=== PATIENT | male | born 1990 | race Hispanic/Latino ===

== ENCOUNTER 2016-09-18 16:02 | Emergency (ER) | payer OTHER ==
[~2016-09-18] VITALS: Ht 180.3 cm; Wt 117.9 kg
[~2016-09-18 16:02] MED LIST: ASPIR 8181 MG ORAL; ATIVAN1 MG ORAL; ATIVAN2 MG ORAL; NKM; [UNRECOGNIZED DRUG - OTHER] PO
[2016-09-18 16:10] VITALS: BP 134/82
--- NOTE | 2016-09-18 16:26 | Emergency Room Report ---
History of Present Illness General Chief Complaint: Abdominal Pain Source: Patient Present Illness HPI 26 YO Male presents to the ED stating he had an episode of 8/10 in severity burning intermittent epigastric and RUQ abdominal pain, that lasts several minutes, and is now resolved. pt. denies nausea or vomiting. denies fevers, chills, constipation or diarrhea. pt. reports hx of similar episodes in the past and states he has a hx of appendicitis. pt. denies bloody or dark tarry stools. pt. reports gallbladder has been surgically removed. denies recent travel or ill contacts. pt. states eating food has not notable bearing on his symptoms.Denies CP, Palpitations, LOC, AMS, dizziness, Changes in Vision, Sensation, paresthesias, or a sudden severe headache. Allergies: Coded Allergies: No Known Allergies (Unverified , 09/20/12) Patient History Past Medical History: see triage record Past Surgical History: none Pertinent Family History: none Immunizations: UTD Reviewed Nursing Documentation: PMH: Agreed, PSxH: Agreed Nursing Documentation-PMH Past Medical History: No History, Except For Hx Hypertension: Yes Hx Gastrointestinal Problems: Yes - Pancreatitis Review of Systems All Other Systems: negative except mentioned in HPI Physical Exam Vital Signs Date Time Temp Pulse Resp B/P Pulse Ox O2 Delivery O2 Flow Rate FiO2 09/18/16 15:58 97.7 92 16 110/76 98 Sp02 EP Interpretation: reviewed, normal General Appearance: no apparent distress, alert, GCS 15, non-toxic Head: normocephalic, atraumatic Eyes: bilateral eye PERRL, bilateral eye normal inspection ENT: hearing grossly normal, normal pharynx, no angioedema, normal voice Neck: full range of motion, supple/symm/no masses Respiratory: lungs clear, normal breath sounds, speaking full sentences Cardiovascular #1: regular rate, rhythm, no edema Gastrointestinal: normal bowel sounds, non tender, soft, no guarding, no rebound, other - Negative [place] signs, Negative MacBurney's sign, Negative Rosvigns Sign, Negative Psoas, No Peritoneal signs. Rectal: deferred Genitourinary: normal inspection, no CVA tenderness Musculoskeletal: back normal, gait/station normal, normal range of motion, non- tender, no calf tenderness Neurologic: alert, oriented x3, responsive, motor strength/tone normal, sensory intact, speech normal Psychiatric: judgement/insight normal, memory normal, mood/affect normal Skin: normal color, no rash, warm/dry, well hydrated Medical Decision Making PA Attestation Dr. Villafana is my supervising Physician whom patient management has been discussed with. Diagnostic Impression: Primary Impression: Abdominal pain Qualified Codes: R10.13 - Epigastric pain ER Course 26 YO Male presents to the ED stating he had an episode of 8/10 in severity burning intermittent epigastric and RUQ abdominal pain, that lasts several minutes, and is now resolved. pt. denies nausea or vomiting. denies fevers, chills, constipation or diarrhea. pt. reports hx of similar episodes in the past and states he has a hx of appendicitis. pt. denies bloody or dark tarry stools. pt. reports gallbladder has been surgically removed. denies recent travel or ill contacts. pt. states eating food has not notable bearing on his symptoms.Denies CP, Palpitations, LOC, AMS, dizziness, Changes in Vision, Sensation, paresthesias, or a sudden severe headache. Ddx considered but are not limited to Diverticulitis, acute appy, diarrhea,UC, PUD, GE, pancreatitis, gallstone Vital signs: are WNL, pt. is afebrile H&PE are most consistent with gastritis or possible peptic ulcer. ORDERS: -CBC elevated wbc 12.7 - CMP & lipase : Unremarkable/WNL UA: unremarkable ED INTERVENTIONS: - 1000NS, - Zantac 150mg. DISCHARGE: At this time pt. is stable for d/c to home. Will provide printed patient care instructions, and any necessary prescriptions. Care plan and follow up instructions have been discussed with the patient prior to discharge. Labs Test 09/18/16 16:40 09/18/16 16:58 Urine Color Yellow Urine Appearance Clear Urine pH 6.5 (4.5-8.0) Urine Specific [place] 1.015 (1.005-1.035) Urine Protein 1+ (NEGATIVE) Urine Glucose (UA) Negative (NEGATIVE) Urine Ketones Negative (NEGATIVE) Urine Occult Blood Negative (NEGATIVE) Urine Nitrite Negative (NEGATIVE) Urine Bilirubin Negative (NEGATIVE) Urine Urobilinogen 4 MG/DL (0.0-1.0) Urine Leukocyte Esterase Negative (NEGATIVE) Urine RBC 0 /HPF (0 - 0) Urine WBC 0-2 /HPF (0 - 0) Urine Squamous Epithelial Cells None /LPF (NONE/OCC) Urine Bacteria None /HPF (NONE) White Blood Count 12.7 K/UL (4.8-10.8) Red Blood Count 4.73 M/UL (4.70-6.10) Hemoglobin 14.5 G/DL (14.2-18.0) Hematocrit 41.7 % (42.0-52.0) Mean Corpuscular Volume 88 FL (80-99) Mean Corpuscular Hemoglobin 30.7 PG (27.0-31.0) Mean Corpuscular Hemoglobin Concent 34.9 G/DL (32.0-36.0) Red Cell Distribution Width 11.2 % (11.6-14.8) Platelet Count 184 K/UL (150-450) Mean Platelet Volume 8.0 FL (6.5-10.1) Neutrophils (%) (Auto) 81.1 % (45.0-75.0) Lymphocytes (%) (Auto) 11.5 % (20.0-45.0) Monocytes (%) (Auto) 6.6 % (1.0-10.0) Eosinophils (%) (Auto) 0.4 % (0.0-3.0) Basophils (%) (Auto) 0.4 % (0.0-2.0) Sodium Level 140 mEQ/L (135-145) Potassium Level 4.7 mEQ/L (3.4-4.9) Chloride Level 100 mEQ/L (98-107) Carbon Dioxide Level 28 mEQ/L (20-30) Anion Gap 12 (5-15) Blood Urea Nitrogen 13 mg/dL (7-23) Creatinine 0.9 mg/dL (0.7-1.2) Estimat Glomerular Filtration Rate > 60 mL/min (>60) Glucose Level 114 mg/dL (74-106) Calcium Level 9.7 mg/dL (8.6-10.2) Total Bilirubin 0.7 mg/dL (0.0-1.2) Aspartate Amino Transf (AST/SGOT) 25 U/L (5-40) Alanine Aminotransferase (ALT/SGPT) 29 U/L (3-41) Alkaline Phosphatase 37 U/L (40-129) Total Protein 7.5 g/dL (6.6-8.7) Albumin 4.6 g/dL (3.5-5.2) Globulin 2.9 g/dL Albumin/Globulin Ratio 1.5 (1.0-2.7) Amylase Level 28 U/L (10-110) Lipase 24 U/L (< 60) Last Vital Signs Date Time Temp Pulse Resp B/P Pulse Ox O2 Delivery O2 Flow Rate FiO2 09/18/16 15:58 97.7 92 16 110/76 98 Disposition: HOME, SELF-CARE Condition: Stable Scripts Ranitidine Hcl* (ZANTAC*) 150 Mg Tablet 150 MG ORAL TWICE A DAY for 14 Days, #28 TAB Prov: Kirsty Palafox 09/18/16 Patient Instructions: Abdominal Pain, Adult, Gastritis, Adult Additional Instructions: Take medications as directed. ! AVOID ALCOHOL, ASPIRIN, and NSAIDS Follow up with a Primary Care Provider in 3-5 days, even if your symptoms have resolved. --Please review list of primary care clinics, if you do not already have a primary care provider Return sooner to ED if new symptoms occur, or current symptoms become worse. - Please note that this Emergency Department Report was dictated using [employer] radiation physician technology software, occasionally this can lead to erroneous entry secondary to interpretation by the dictation equipment. Kirsty Palafox Sep 18, 2016 16:26
[2016-09-18 17:25] LABS: BASOPHILS % (AUTO) 0.4 % (0.0-2.0); EOSINOPHILS % (AUTO) 0.4 % (0.0-3.0); LYMPHOCYTES % (AUTO) 11.5 % (20.0-45.0); MEAN CORPUSCULAR HEMOGLOBIN 30.7 PG (27.0-31.0); MEAN CORPUSCULAR HGB CONC 34.9 G/DL (32.0-36.0); MEAN CORPUSCULAR VOLUME 88 FL (80-99); MONOCYTES % (AUTO) 6.6 % (1.0-10.0); NEUTROPHILS % (AUTO) 81.1 % (45.0-75.0); PLATELET COUNT 184 K/UL (150-450); RED BLOOD COUNT 4.73 M/UL (4.70-6.10); RED CELL DISTRIBUTION WIDTH 11.2 % (11.6-14.8); WHITE BLOOD COUNT 12.7 K/UL (4.8-10.8)
[2016-09-18 17:30] LABS: APPEARANCE,URINE CLEAR; KETONES,URINE NEGATIVE (NEGATIVE); LEUKOCYTE ESTERASE ,URINE NEGATIVE (NEGATIVE); NITRITE,URINE NEGATIVE (NEGATIVE); PH,URINE 6.5 (4.5-8.0); PROTEIN,URINE 1+ (NEGATIVE); UROBILINOGEN,URINE 4 MG/DL (0.0-1.0)
[2016-09-18 17:36] LABS: RBC,URINE 0 /HPF (0 - 0); WBC,URINE 0-2 /HPF (0 - 0)
[2016-09-18 17:37] LABS: ALANINE AMINOTRANSFERASE 29 U/L (3-41); ALBUMIN/GLOBULIN RATIO 1.5 (1.0-2.7); AMYLASE 28 U/L (10-110); ANION GAP 12 (5-15); ASPARTATE AMINO TRANSFERASE 25 U/L (5-40); CALCIUM 9.7 mg/dL (8.6-10.2); CARBON DIOXIDE 28 mEQ/L (20-30); CHLORIDE 100 mEQ/L (98-107); CREATININE 0.9 mg/dL (0.7-1.2); GLOMERULAR FILTRATION RATE > 60 mL/min (>60); HEMOLYSIS 7; LIPASE 24 U/L (< 60); POTASSIUM 4.7 mEQ/L (3.4-4.9); SODIUM 140 mEQ/L (135-145); TOTAL PROTEIN 7.5 g/dL (6.6-8.7)
[2016-09-18] MEDS ORDERED: LISINOPRIL10 MG ORAL (17:39)
[2016-09-18] MEDS ORDERED: ZANTAC150 MG ORAL (18:00)
[2016-09-18 18:07] VITALS: BP 114/57
[2016-09-18 18:41] VITALS: BP 116/51
== END 2016-09-18 18:43 | disposition home or self-care (01) ==
LOC: EDBD 16:02 → EMR 16:54
DX: R10.13 Epigastric pain (principal); I10 Essential (primary) hypertension; Z87.19 Personal history of other diseases of the digestive system
CPT/HCPCS: 36415; 80053; 81003; 82150; 83690; 85025; 96360

== ENCOUNTER 2019-07-03 18:46 | Inpatient (IN) | payer BC, OTHER ==
[~2019-07-03] VITALS: Ht 180.3 cm; Wt 122.6 kg
[~2019-07-03 18:46] MED LIST changes: +LISINOPRIL10 MG ORAL; +ZANTAC150 MG ORAL
--- NOTE | 2019-07-03 18:50 | NUR ---
ED Nurse Note: Pt ambulated to ED d/t abdominal pain, nausea and vomiting since 0900 today. Pt is AOx4, calm and cooperative. VSS, on RA, afebrile on triage. Placed on bed; will continue to monitor.
[2019-07-03] MEDS ORDERED: LISINOPRIL20 MG ORAL (18:53)
[2019-07-03 19:00] VITALS: BP 167/104
--- NOTE | 2019-07-03 19:14 | NUR ---
HAND-OFF: Report given to Steven Wong RN.
--- NOTE | 2019-07-03 19:15 | NUR ---
ED Nurse Note: received report from Jenelle VARGAS. Will resume care of patient
--- NOTE | 2019-07-03 19:28 | Emergency Room Report ---
History of Present Illness General Chief Complaint: Abdominal Pain Source: Patient Present Illness HPI Patient is a 28-year-old male who presents after increased epigastric pain beginning yesterday. He had associated nausea and vomiting. Reports having prior history of gallstones as well as pancreatitis. Previous laparoscopic cholecystectomy. States he had prior pancreatitis approximately 4 years ago. Denies alcohol use regularly however he states he had one alcohol beverage a few days ago.Patient denies any hematemesis or bloody stools. Denies any fever or recent illness. Denies any sick contacts. Allergies: Coded Allergies: No Known Allergies (Unverified , 09/20/12) COVID-19 Screening Contact w/high risk pt: No Recent Travel to affected area: No Experienced COVID-19 symptoms?: No Patient History Past Medical History: see triage record Reviewed Nursing Documentation: PMH: Agreed; PSxH: Agreed Nursing Documentation-PMH Past Medical History: No History, Except For Hx Hypertension: Yes Hx Gastrointestinal Problems: Yes - Pancreatitis Review of Systems All Other Systems: negative except mentioned in HPI Physical Exam Vital Signs Date Time Temp Pulse Resp B/P (MAP) Pulse Ox O2 Delivery O2 Flow Rate FiO2 07/03/19 18:49 98.1 91 22 167/104 (125) 98 Room Air Sp02 EP Interpretation: reviewed, normal General Appearance: normal inspection, well appearing, no apparent distress, alert, GCS 15, obese Head: atraumatic ENT: normal ENT inspection, hearing grossly normal, normal voice Neck: normal inspection, full range of motion, supple, no bony tend Respiratory: normal inspection, lungs clear, normal breath sounds, no respiratory distress, no retraction, no wheezing Cardiovascular #1: regular rate, rhythm, no edema Gastrointestinal: normal inspection, normal bowel sounds, soft, no guarding, no hernia, tenderness - Epigastric Genitourinary: no CVA tenderness Musculoskeletal: normal inspection, back normal, normal range of motion Neurologic: alert, responsive, speech normal, normal inspection Psychiatric: normal inspection, judgement/insight normal, mood/affect normal Medical Decision Making Diagnostic Impression: Primary Impression: Pancreatitis Qualified Codes: K85.80 - Other acute pancreatitis without necrosis or infection ER Course Patient presented for abdominal pain. Differential diagnosis include was not limited to pancreatitis, bowel obstruction, cholecystitis among others. Because of complexity of patient's medical condition imaging studies and laboratory tests were ordered. Laboratory testing was notable for markedly elevated lipase consistent with pancreatitis. Patient was given IV fluids as well as pain medications. CT imaging showed some ascites as well as marketed inflammatory changes near the pancreas. See radiology report for full details. Patient be admitted to the hospital for further evaluation and treatment of pancreatitis. Dr. Jackson was contacted for inpatient management due to panel physician. Last Vital Signs Date Time Temp Pulse Resp B/P (MAP) Pulse Ox O2 Delivery O2 Flow Rate FiO2 07/03/19 19:00 91 22 Room Air 07/03/19 19:00 98.1 167/104 98 Status: unchanged Disposition: ADMITTED INPATIENT Condition: Serious Referrals: NOT CHOSEN IPA/,REFERRING (PCP) Brayden Moran MD July 03, 2019 19:28
[2019-07-03] MEDS ORDERED: Morphine Sulfate 4mg/ml Inj (IV USE ONLY) IVP ONE ×3 (19:30→22:15)
--- NOTE | 2019-07-03 19:45 | NUR ---
ED Nurse Note: BLOOD AND URINE COLLECTED AND SENT TO LAB
[2019-07-03 20:01] LABS: BASOPHILS % (AUTO) 0.4 % (0.0-2.0); EOSINOPHILS % (AUTO) 0.4 % (0.0-3.0); HEMATOCRIT 44.1 % (42.0-52.0); HEMOGLOBIN 14.8 G/DL (14.2-18.0); LYMPHOCYTES % (AUTO) 16.3 % (20.0-45.0); MEAN CORPUSCULAR VOLUME 86 FL (80-99); MONOCYTES % (AUTO) 7.2 % (1.0-10.0); NEUTROPHILS % (AUTO) 75.6 % (45.0-75.0); PLATELET COUNT 211 K/UL (150-450); RED BLOOD COUNT 5.12 M/UL (4.70-6.10); RED CELL DISTRIBUTION WIDTH 12.2 % (11.6-14.8); WHITE BLOOD COUNT 11.7 K/UL (4.8-10.8)
[2019-07-03 20:06] LABS: ANION GAP 13 mmol/L (5-15); BLOOD UREA NITROGEN 12 mg/dL (7-18); CALCIUM 9.3 MG/DL (8.5-10.1); CARBON DIOXIDE 26 MMOL/L (21-32); CHLORIDE 103 MMOL/L (98-107); POTASSIUM 3.9 MMOL/L (3.5-5.1); SODIUM 142 MMOL/L (136-145)
[2019-07-03 20:07] LABS: INR 0.9 (0.9-1.1)
[2019-07-03 20:10] LABS: ALANINE AMINOTRANSFERASE 33 U/L (12-78); ALBUMIN 4.1 G/DL (3.4-5.0); ALBUMIN/GLOBULIN RATIO 1.2 (1.0-2.7); ALKALINE PHOSPHATASE 31 U/L (46-116); ASPARTATE AMINO TRANSFERASE 14 U/L (15-37); BILIRUBIN,TOTAL 0.6 MG/DL (0.2-1.0)
[2019-07-03] MEDS ORDERED: Omnipaque-300 100ml vial INJ PRN (20:30)
--- NOTE | 2019-07-03 20:45 | NUR ---
ED Nurse Note: PT CONSENT FORM SIGNED BY PT FOR CT ANGIO.
--- NOTE | 2019-07-03 20:50 | NUR ---
ED Nurse Note: PT WENT FOR CT
[2019-07-03 20:53] LABS: APPEARANCE,URINE CLEAR; BILIRUBIN, URINE NEGATIVE (NEGATIVE); COLOR,URINE YELLOW; GLUCOSE, URINE (UA) NEGATIVE (NEGATIVE); KETONES,URINE NEGATIVE (NEGATIVE); LEUKOCYTE ESTERASE ,URINE NEGATIVE (NEGATIVE); NITRITE,URINE NEGATIVE (NEGATIVE); PH,URINE 5 (4.5-8.0); PROTEIN,URINE NEGATIVE (NEGATIVE); UROBILINOGEN,URINE 1 MG/DL (0.0-1.0)
--- NOTE | 2019-07-03 21:05 | NUR ---
ED Nurse Note: PT BACK FROM CT
--- NOTE | 2019-07-03 21:50 | Diagnostic Imaging Report ---
EXAM: CT Abdomen and Pelvis With Intravenous Contrast CLINICAL HISTORY: ABD PAIN TECHNIQUE: Axial computed tomography images of the abdomen and pelvis with intravenous contrast. CTDI is 18.6 mGy and DLP is 1048 mGy-cm. One or more of the following dose reduction techniques were used: automated exposure control, adjustment of the mA and/or kV according to patient size, use of iterative reconstruction technique. COMPARISON: No relevant prior studies available. FINDINGS: Lung bases: Unremarkable. ABDOMEN: Liver: Mild fatty liver. Gallbladder and bile ducts: Cholecystectomy. Pancreas: Pancreatitis with pancreatic ascites. No pseudocyst. Spleen: Unremarkable. Adrenals: Unremarkable. Kidneys and ureters: Unremarkable. No hydronephrosis. Stomach and bowel: Reactive changes in the stomach and duodenum secondary to the pancreatitis PELVIS: Appendix: No findings to suggest acute appendicitis. Bladder: Unremarkable. Reproductive: Unremarkable. ABDOMEN and PELVIS: Intraperitoneal space: See above. Bones/joints: No acute fracture. Soft tissues: Unremarkable. Vasculature: Unremarkable. No abdominal aortic aneurysm. Lymph nodes: No enlarged lymph nodes. IMPRESSION: Pancreatitis with pancreatic ascites. No pseudocyst.
--- NOTE | 2019-07-03 22:27 | NUR ---
NURSE NOTES: Receive a report from TIFFANY Harris RN.
[2019-07-03 22:32] VITALS: BP 109/72
--- NOTE | 2019-07-03 22:33 | NUR ---
ED Nurse Note: GAVE REPORT TO MEET RN
--- NOTE | 2019-07-03 22:48 | NUR ---
TRANSFER TO FLOOR: Patient transferred to [facility] via [facility] in stable condition as ordered, per dr. Jackson. Report given to Sam VARGAS. Belongings sent with patient
--- NOTE | 2019-07-03 22:50 | NUR ---
NURSE NOTES: Pt admitted from ED via gurney. Alert and awake, Bulgarian speaking. No acute distress noted but still pain is 9/10 after pain medication @ ED. On NPO. B/B continent. No skin issues. Done checking belonging list. Pt will keep laurent in hands. Given unit orientation. Call light within reach. Will continue to monitor.
[2019-07-03 23:00] VITALS: BP 145/55
--- NOTE | 2019-07-03 23:05 | NUR ---
NURSE NOTES: Receive a call from Dr. Moseley and got admission orders. Notify Pt's pain level. Will have consult for GI and pain. Read back orders. Order noted and carried out. Explain to pt for pain medication schedule. Will continue to monitor.
--- NOTE | 2019-07-03 23:45 | NUR ---
NURSE NOTES: Given Zofran 4mg IVS for nausea. Explain for pain medication schedule d/t medication S/E and disease process. Pt understood. Apply ice bag for pain and distraction. Will continue to monitor.
[2019-07-04] MEDS: Morphine Sulfate 4mg/ml Inj (IV USE ONLY) IVP PRN ×5 (02:31→22:51)
[2019-07-04 04:30] VITALS: BP 147/88
--- NOTE | 2019-07-04 07:30 | NUR ---
HAND-OFF: Report given to MEET VARGAS. Addendum: 07/04/19 at 2026 by Donny Joseph RN RN Krzysztof cevallos , 1929
--- NOTE | 2019-07-04 07:30 | NUR ---
HAND-OFF: Report given to ALICIA Hines. Round is done. Pt relieved after pain medication. On NPO.
--- NOTE | 2019-07-04 07:30 | NUR ---
NURSE NOTES: Handoff received from O RN. Patient is awake and alert, no complaints of pain at this time. Breathing is unlabored on room air, IV is patent and asymptomatic. Bed is low and locked, side rails up x2, call light within reach.
[2019-07-04 08:00] VITALS: BP 145/85
[2019-07-04] MEDS ORDERED: 1/2 NS 1000ml IV ONE (08:36)
[2019-07-04 08:52] LABS: HEMATOCRIT 41.1 % (42.0-52.0); HEMOGLOBIN 14.8 G/DL (14.2-18.0); MEAN CORPUSCULAR VOLUME 82 FL (80-99); PLATELET COUNT 204 K/UL (150-450); RED BLOOD COUNT 4.99 M/UL (4.70-6.10); RED CELL DISTRIBUTION WIDTH 10.9 % (11.6-14.8); WHITE BLOOD COUNT 10.8 K/UL (4.8-10.8)
[2019-07-04 09:23] LABS: ALANINE AMINOTRANSFERASE 32 U/L (12-78); ALBUMIN 3.7 G/DL (3.4-5.0); ALBUMIN/GLOBULIN RATIO 1.1 (1.0-2.7); ALKALINE PHOSPHATASE 28 U/L (46-116); ANION GAP 10 mmol/L (5-15); ASPARTATE AMINO TRANSFERASE 16 U/L (15-37); BILIRUBIN,TOTAL 0.9 MG/DL (0.2-1.0); BLOOD UREA NITROGEN 9 mg/dL (7-18); CALCIUM 8.6 MG/DL (8.5-10.1); CARBON DIOXIDE 25 MMOL/L (21-32); CHLORIDE 104 MMOL/L (98-107); CREATININE 0.8 MG/DL (0.55-1.30); POTASSIUM 3.9 MMOL/L (3.5-5.1); SODIUM 139 MMOL/L (136-145)
--- NOTE | 2019-07-04 10:05 | General Progress Note ---
Assessment/Plan Assessment/Plan: pancreatitis ? cause post kaia min ETOH increase IVF to 150 repeat labs lipid panel pain Control npo will fu Subjective ROS Limited/Unobtainable: Yes Allergies: Coded Allergies: No Known Allergies (Unverified , 09/20/12) Objective Last 24 Hour Vital Signs Date Time Temp Pulse Resp B/P (MAP) Pulse Ox O2 Delivery O2 Flow Rate FiO2 07/04/19 08:00 98.2 72 18 145/85 (105) 95 07/04/19 04:30 97.3 73 20 147/88 (107) 97 07/04/19 00:00 Room Air 07/03/19 23:30 Room Air 07/03/19 23:00 99.9 87 20 145/55 (85) 97 07/03/19 22:48 98.3 81 20 109/72 98 Room Air 07/03/19 22:44 98.3 07/03/19 22:32 98.3 81 20 109/72 98 Room Air 07/03/19 21:12 98.1 07/03/19 20:18 98.1 07/03/19 19:00 91 22 Room Air 07/03/19 19:00 98.1 22 167/104 98 Room Air 07/03/19 18:49 98.1 91 22 167/104 (125) 98 Room Air Intake and Output 07/03/19 07/04/19 19:00 07:00 Intake Total 405 ml Balance 405 ml Intake IV Total 405 ml # Voids 2 Laboratory Tests 07/03/19 19:40: White Blood Count 11.7H, Red Blood Count 5.12, Hemoglobin 14.8, Hematocrit 44.1 , Mean Corpuscular Volume 86, Mean Corpuscular Hemoglobin 28.9, Mean Corpuscular Hemoglobin Concent 33.6, Red Cell Distribution Width 12.2, Platelet Count 211, Mean Platelet Volume 9.2, Neutrophils (%) (Auto) 75.6H, Lymphocytes ( %) (Auto) 16.3L, Monocytes (%) (Auto) 7.2, Eosinophils (%) (Auto) 0.4, Basophils (%) (Auto) 0.4, Prothrombin Time 10.0, Prothromb Time International Ratio 0.9, Activated Partial Thromboplast Time 25, Sodium Level 142, Potassium Level 3.9, Chloride Level 103, Carbon Dioxide Level 26, Anion Gap 13, Blood Urea Nitrogen 12, Creatinine 1.0, Estimat Glomerular Filtration Rate > 60, Glucose Level 126H, Calcium Level 9.3, Total Bilirubin 0.6, Aspartate Amino Transf (AST/SGOT) 14L, Alanine Aminotransferase (ALT/SGPT) 33, Alkaline Phosphatase 31L, Total Protein 7.6, Albumin 4.1, Globulin 3.5, Albumin/Globulin Ratio 1.2, Lipase > 2000H 07/03/19 20:10: Urine Color Yellow, Urine Appearance Clear, Urine pH 5, Urine Specific [place] 1.020, Urine Protein Negative, Urine Glucose (UA) Negative, Urine Ketones Negative, Urine Blood Negative, Urine Nitrite Negative, Urine Bilirubin Negative , Urine Urobilinogen 1H, Urine Leukocyte Esterase Negative 07/04/19 08:30: White Blood Count 10.8, Red Blood Count 4.99, Hemoglobin 14.8, Hematocrit 41.1L , Mean Corpuscular Volume 82, Mean Corpuscular Hemoglobin 29.6, Mean Corpuscular Hemoglobin Concent 36.0, Red Cell Distribution Width 10.9L, Platelet Count 204, Mean Platelet Volume 7.0, Neutrophils (%) (Auto) , Lymphocytes (%) (Auto) , Monocytes (%) (Auto) , Eosinophils (%) (Auto) , Basophils (%) (Auto) , Sodium Level 139, Potassium Level 3.9, Chloride Level 104 , Carbon Dioxide Level 25, Anion Gap 10, Blood Urea Nitrogen 9, Creatinine 0.8, Estimat Glomerular Filtration Rate > 60, Glucose Level 110H, Calcium Level 8.6, Total Bilirubin 0.9, Aspartate Amino Transf (AST/SGOT) 16, Alanine Aminotransferase (ALT/SGPT) 32, Alkaline Phosphatase 28L, Total Protein 7.2, Albumin 3.7, Globulin 3.5, Albumin/Globulin Ratio 1.1, Lipase > 2000H, Neutrophils % (Manual) [Pending], Lymphocytes % (Manual) [Pending], Platelet Estimate [Pending], Platelet Morphology [Pending] Height (Feet): 5 Height (Inches): 11.00 Weight (Pounds): 270 General Appearance: no apparent distress EENT: PERRL/EOMI Neck: supple Cardiovascular: normal rate Respiratory/Chest: decreased breath sounds Abdomen: normal bowel sounds, non tender, soft Extremities: non-tender Vosoghi,Nixon MD July 04, 2019 10:05
--- NOTE | 2019-07-04 10:18 | NUR ---
CASE MANAGEMENT: INITIAL REVIEW 28YR OLD MALE FROM HOME CC: ABDOMINAL PAIN; NAUSEA AND VOMITING PMH: GALLSTONES ; PANCREATITIS ; LAP [place] SI:PANCREATITIS 98.0 91 22 167/104 98% ON RA WBC 11.7 LIPASE >2000 ALKP 31 IS:IVF NS BOLUS X2 IV ZOFRAN X1 IV PEPCID X1 IV MORPHINE SULFATE X3 CT ABDOMINAL AND PELVIS W/ IV CONTRAST -Pancreatitis with pancreatic ascites. No pseudocyst. \: 3E [facility] SURG UNIT DCP: HOME WHEN STABLE PLAN: NPO CONTROL PAIN REPEAT LABS INTERQUAL MET 07/03/19 CASE MANAGEMENT: REVIEW SI:PANCREATITIS 98.2 72 18 145/85 95% ON RA LIPASE >2000 ALKP 28 IS:IV ZOFRAN Q6HR/PRN IV MORPHINE SULFATE Q4HR/PRN \: 3E MED SURG UNIT DCP: HOME WHEN STABLE PLAN: NPO CONTROL PAIN REPEAT LABS AM LABS
--- NOTE | 2019-07-04 10:32 | NUR ---
*-* INSURANCE *-* ALL AVAILABLE CLINICALS HAVE BEEN FAXED TO: [facility] REF#[id number] #[phone] FAX#[phone] REVIEWS/CLINICALS Addendum: 07/04/19 at 1109 by NAYAN GLEASON CM [facility] Ref#[id number] Ph#[phone] fax#[phone]
[2019-07-04 12:00] VITALS: BP 144/83
--- NOTE | 2019-07-04 15:41 | Consultation ---
History of Present Illness General Date patient seen: July 04, 2019 Reason for Hospitalization: Abdominal Pain Present Illness HPI This is a very pleasant overweight 28-year-old male who presents after increased epigastric pain beginning yesterday. He had associated nausea and vomiting. Reports having prior history of gallstones as well as pancreatitis. Previous laparoscopic cholecystectomy 6 years ago for believed episodes of gallstone pancreatitis. States he had prior pancreatitis approximately 3-4 years ago. Denies alcohol use regularly however he states he had one alcohol beverage a few days ago but does not drink often at all. Patient denies any hematemesis or bloody stools. Denies any fever or recent illness. Denies any sick contacts. lip >2k. abnormal lft. surgery called to evaluate and assist with care. patient seen, chart reviewed, patient examined. pain imroved with pain meds Allergies: Coded Allergies: No Known Allergies (Unverified , 09/20/12) COVID-19 Screening Contact w/high risk pt: No Recent Travel to affected area: No Experienced COVID-19 symptoms?: No Medication History Scheduled Aspirin* (Aspir 81*), 81 MG ORAL DAILY, (Reported) Lisinopril (Lisinopril*), 20 MG ORAL DAILY, (Reported) Lisinopril* (Lisinopril*), 10 MG ORAL DAILY, (Reported) Lorazepam* (Ativan*), 1 MG ORAL THREE TIMES A DAY Lorazepam* (Ativan*), 2 MG ORAL THREE TIMES A DAY Ranitidine Hcl* (Zantac*), 150 MG ORAL TWICE A DAY [Trionipril], 20 MG PO DAILY, (Reported) Patient History History Provided By: Patient, Medical Record, PMD Healthcare decision maker Resuscitation status Advanced Directive on File Past Medical/Surgical History Past Medical/Surgical History: (1) anxiety (2) Palpitations (3) Palpitations (4) Pancreatitis Review of Systems Review of Symptoms General ROS: no weight loss or fever Psychological ROS: no depression or mood changes, no memory loss Ophthalmic ROS: no visual changes or eye irritation ENT ROS: no nasal congestion, hearing loss, dizziness Allergy and Immunology ROS: no allergic symptoms or urticaria Hematological and Lymphatic ROS: no swollen glands, unusual bleeding or bruising Endocrine ROS: no polyuria, polydipsia, weight changes, temperature intolerance Respiratory ROS: no cough, shortness of breath, or wheezing Cardiovascular ROS: no chest pain or dyspnea on exertion Gastrointestinal ROS: abdominal pain, bright red blood in stool. Musculoskeletal ROS: no myalgias or arthralgias Neurological ROS: no TIA or stroke symptoms Dermatological ROS: no new or changing skin lesions, rashes or pruritis Physical Exam Physical Exam General appearance: alert, cooperative, no distress, appears stated age Head: Normocephalic, without obvious abnormality, atraumatic Eyes: conjunctivae/corneas clear. PERRL, EOM's intact. Fundi benign Throat: Lips, mucosa, and tongue normal. Teeth and gums normal Neck: supple, symmetrical, trachea midline, no adenopathy, thyroid: not enlarged, symmetric, no tenderness/mass/nodules, no carotid bruit and no JVD Lungs: clear to auscultation bilaterally Heart: regular rate and rhythm, S1, S2 normal, no murmur, click, rub or gallop Abdomen: soft, non-tender. Bowel sounds normal. No masses, no organomegaly Extremities: extremities normal, atraumatic, no cyanosis or edema Pulses: 2+ and symmetric Skin: Skin color, texture, turgor normal. No rashes or lesions Neurologic: Grossly normal Last 24 Hour Vital Signs Date Time Temp Pulse Resp B/P (MAP) Pulse Ox O2 Delivery O2 Flow Rate FiO2 07/04/19 12:00 97.6 78 18 144/83 (103) 96 78 07/04/19 09:00 Room Air 07/04/19 08:00 98.2 72 18 145/85 (105) 95 07/04/19 04:30 97.3 73 20 147/88 (107) 97 07/04/19 00:00 Room Air 07/03/19 23:30 Room Air 07/03/19 23:00 99.9 87 20 145/55 (85) 97 07/03/19 22:48 98.3 81 20 109/72 98 Room Air 07/03/19 22:44 98.3 07/03/19 22:32 98.3 81 20 109/72 98 Room Air 07/03/19 21:12 98.1 07/03/19 20:18 98.1 07/03/19 19:00 91 22 Room Air 07/03/19 19:00 98.1 22 167/104 98 Room Air 07/03/19 18:49 98.1 91 22 167/104 (125) 98 Room Air Intake and Output 07/03/19 07/04/19 19:00 07:00 Intake Total 405 ml Balance 405 ml Intake IV Total 405 ml # Voids 2 Laboratory Tests Test 07/03/19 19:40 07/03/19 20:10 07/04/19 08:30 White Blood Count 11.7 K/UL (4.8-10.8) H 10.8 K/UL (4.8-10.8) Red Blood Count 5.12 M/UL (4.70-6.10) 4.99 M/UL (4.70-6.10) Hemoglobin 14.8 G/DL (14.2-18.0) 14.8 G/DL (14.2-18.0) Hematocrit 44.1 % (42.0-52.0) 41.1 % (42.0-52.0) L Mean Corpuscular Volume 86 FL (80-99) 82 FL (80-99) Mean Corpuscular Hemoglobin 28.9 PG (27.0-31.0) 29.6 PG (27.0-31.0) Mean Corpuscular Hemoglobin Concent 33.6 G/DL (32.0-36.0) 36.0 G/DL (32.0-36.0) Red Cell Distribution Width 12.2 % (11.6-14.8) 10.9 % (11.6-14.8) L Platelet Count 211 K/UL (150-450) 204 K/UL (150-450) Mean Platelet Volume 9.2 FL (6.5-10.1) 7.0 FL (6.5-10.1) Neutrophils (%) (Auto) 75.6 % (45.0-75.0) H % (45.0-75.0) Lymphocytes (%) (Auto) 16.3 % (20.0-45.0) L % (20.0-45.0) Monocytes (%) (Auto) 7.2 % (1.0-10.0) % (1.0-10.0) Eosinophils (%) (Auto) 0.4 % (0.0-3.0) % (0.0-3.0) Basophils (%) (Auto) 0.4 % (0.0-2.0) % (0.0-2.0) Prothrombin Time 10.0 SEC (9.30-11.50) Prothromb Time International Ratio 0.9 (0.9-1.1) Activated Partial Thromboplast Time 25 SEC (23-33) Sodium Level 142 MMOL/L (136-145) 139 MMOL/L (136-145) Potassium Level 3.9 MMOL/L (3.5-5.1) 3.9 MMOL/L (3.5-5.1) Chloride Level 103 MMOL/L (98-107) 104 MMOL/L (98-107) Carbon Dioxide Level 26 MMOL/L (21-32) 25 MMOL/L (21-32) Anion Gap 13 mmol/L (5-15) 10 mmol/L (5-15) Blood Urea Nitrogen 12 mg/dL (7-18) 9 mg/dL (7-18) Creatinine 1.0 MG/DL (0.55-1.30) 0.8 MG/DL (0.55-1.30) Estimat Glomerular Filtration Rate > 60 mL/min (>60) > 60 mL/min (>60) Glucose Level 126 MG/DL (74-106) H 110 MG/DL (74-106) H Calcium Level 9.3 MG/DL (8.5-10.1) 8.6 MG/DL (8.5-10.1) Total Bilirubin 0.6 MG/DL (0.2-1.0) 0.9 MG/DL (0.2-1.0) Aspartate Amino Transf (AST/SGOT) 14 U/L (15-37) L 16 U/L (15-37) Alanine Aminotransferase (ALT/SGPT) 33 U/L (12-78) 32 U/L (12-78) Alkaline Phosphatase 31 U/L (46-116) L 28 U/L (46-116) L Total Protein 7.6 G/DL (6.4-8.2) 7.2 G/DL (6.4-8.2) Albumin 4.1 G/DL (3.4-5.0) 3.7 G/DL (3.4-5.0) Globulin 3.5 g/dL 3.5 g/dL Albumin/Globulin Ratio 1.2 (1.0-2.7) 1.1 (1.0-2.7) Lipase > 2000 U/L (73-393) H > 2000 U/L (73-393) H Urine Color Yellow Urine Appearance Clear Urine pH 5 (4.5-8.0) Urine Specific [place] 1.020 (1.005-1.035) Urine Protein Negative (NEGATIVE) Urine Glucose (UA) Negative (NEGATIVE) Urine Ketones Negative (NEGATIVE) Urine Blood Negative (NEGATIVE) Urine Nitrite Negative (NEGATIVE) Urine Bilirubin Negative (NEGATIVE) Urine Urobilinogen 1 MG/DL (0.0-1.0) H Urine Leukocyte Esterase Negative (NEGATIVE) Differential Total Cells Counted 100 Neutrophils % (Manual) 82 % (45-75) H Lymphocytes % (Manual) 11 % (20-45) L Monocytes % (Manual) 7 % (1-10) Eosinophils % (Manual) 0 % (0-3) Basophils % (Manual) 0 % (0-2) Band Neutrophils 0 % (0-8) Platelet Estimate Adequate Platelet Morphology Normal Red Blood Cell Morphology Normal Height (Feet): 5 Height (Inches): 11.00 Weight (Pounds): 270 Medications Current Medications Medications (Trade) Dose Ordered Sig/Shell Route PRN Reason Start Time Stop Time Status Last Admin Dose Admin Acetaminophen (Tylenol) 650 mg Q4H PRN ORAL Temp >100 07/03/19 23:15 08/02/19 23:14 Barium Sulfate (Readi-Cat 2) 450 ml NOW PRN ORAL Radiology Procedure 07/03/19 20:30 07/05/19 20:25 Iohexol (OMNIPAQUE-300 100ml) 100 ml NOW PRN INJ Radiology Procedure 07/03/19 20:30 07/05/19 20:25 Morphine Sulfate (Morphine Sulfate) 4 mg Q4H PRN IVP Severe Pain (Pain Scale 7-10) 07/03/19 23:15 07/10/19 23:14 07/04/19 10:49 Ondansetron HCl (Zofran) 4 mg Q6H PRN IVP Nausea & Vomiting 07/03/19 23:15 08/02/19 23:14 07/04/19 06:49 Sodium Chloride 1,000 ml @ 150 mls/hr Q6H40M IV 07/04/19 10:30 08/03/19 10:29 07/04/19 10:45 Assessment/Plan Problem List: (1) Pancreatitis Assessment & Plan: 28 year old male with acute pancreatitis not etoh induced. not gallstones as hx of lap kaia similar prior events etiology still under workup possible idiopathic / autoimmune pain still lip >2k on admission npo iv fluids iv abx will follow with clinical exam pain control thank you ABDOMEN: Liver: Mild fatty liver. Gallbladder and bile ducts: Cholecystectomy. Pancreas: Pancreatitis with pancreatic ascites. No pseudocyst. Spleen: Unremarkable. Adrenals: Unremarkable. Kidneys and ureters: Unremarkable. No hydronephrosis. Stomach and bowel: Reactive changes in the stomach and duodenum secondary to the pancreatitis PELVIS: Appendix: No findings to suggest acute appendicitis. Bladder: Unremarkable. Reproductive: Unremarkable. ABDOMEN and PELVIS: Intraperitoneal space: See above. Bones/joints: No acute fracture. Soft tissues: Unremarkable. Vasculature: Unremarkable. No abdominal aortic aneurysm. Lymph nodes: No enlarged lymph nodes. IMPRESSION: Pancreatitis with pancreatic ascites. No pseudocyst. ICD Codes: K85.90 - Acute pancreatitis without necrosis or infection, unspecified SNOMED: [id number] Qualifiers: Qualified Codes: K85.80 - Other acute pancreatitis without necrosis or infection Heber Rodriguez July 04, 2019 15:41
[2019-07-04 16:00] VITALS: BP 149/75
--- NOTE | 2019-07-04 17:48 | Consultation ---
History of Present Illness General Date patient seen: July 04, 2019 Present Illness Allergies: Coded Allergies: No Known Allergies (Unverified , 09/20/12) Medication History Scheduled Aspirin* (Aspir 81*), 81 MG ORAL DAILY, (Reported) Lisinopril (Lisinopril*), 20 MG ORAL DAILY, (Reported) Lisinopril* (Lisinopril*), 10 MG ORAL DAILY, (Reported) Lorazepam* (Ativan*), 1 MG ORAL THREE TIMES A DAY Lorazepam* (Ativan*), 2 MG ORAL THREE TIMES A DAY Ranitidine Hcl* (Zantac*), 150 MG ORAL TWICE A DAY [Trionipril], 20 MG PO DAILY, (Reported) Patient History Healthcare decision maker Resuscitation status Advanced Directive on File Physical Exam Last 24 Hour Vital Signs Date Time Temp Pulse Resp B/P (MAP) Pulse Ox O2 Delivery O2 Flow Rate FiO2 07/04/19 16:00 98.9 81 21 149/75 (99) 97 07/04/19 12:00 97.6 78 18 144/83 (103) 96 78 07/04/19 09:00 Room Air 07/04/19 08:00 98.2 72 18 145/85 (105) 95 07/04/19 04:30 97.3 73 20 147/88 (107) 97 07/04/19 00:00 Room Air 07/03/19 23:30 Room Air 07/03/19 23:00 99.9 87 20 145/55 (85) 97 07/03/19 22:48 98.3 81 20 109/72 98 Room Air 07/03/19 22:44 98.3 07/03/19 22:32 98.3 81 20 109/72 98 Room Air 07/03/19 21:12 98.1 07/03/19 20:18 98.1 07/03/19 19:00 91 22 Room Air 07/03/19 19:00 98.1 22 167/104 98 Room Air 07/03/19 18:49 98.1 91 22 167/104 (125) 98 Room Air Intake and Output 07/03/19 07/04/19 19:00 07:00 Intake Total 405 ml Balance 405 ml Intake IV Total 405 ml # Voids 2 Laboratory Tests Test 07/03/19 19:40 07/03/19 20:10 07/04/19 08:30 White Blood Count 11.7 K/UL (4.8-10.8) H 10.8 K/UL (4.8-10.8) Red Blood Count 5.12 M/UL (4.70-6.10) 4.99 M/UL (4.70-6.10) Hemoglobin 14.8 G/DL (14.2-18.0) 14.8 G/DL (14.2-18.0) Hematocrit 44.1 % (42.0-52.0) 41.1 % (42.0-52.0) L Mean Corpuscular Volume 86 FL (80-99) 82 FL (80-99) Mean Corpuscular Hemoglobin 28.9 PG (27.0-31.0) 29.6 PG (27.0-31.0) Mean Corpuscular Hemoglobin Concent 33.6 G/DL (32.0-36.0) 36.0 G/DL (32.0-36.0) Red Cell Distribution Width 12.2 % (11.6-14.8) 10.9 % (11.6-14.8) L Platelet Count 211 K/UL (150-450) 204 K/UL (150-450) Mean Platelet Volume 9.2 FL (6.5-10.1) 7.0 FL (6.5-10.1) Neutrophils (%) (Auto) 75.6 % (45.0-75.0) H % (45.0-75.0) Lymphocytes (%) (Auto) 16.3 % (20.0-45.0) L % (20.0-45.0) Monocytes (%) (Auto) 7.2 % (1.0-10.0) % (1.0-10.0) Eosinophils (%) (Auto) 0.4 % (0.0-3.0) % (0.0-3.0) Basophils (%) (Auto) 0.4 % (0.0-2.0) % (0.0-2.0) Prothrombin Time 10.0 SEC (9.30-11.50) Prothromb Time International Ratio 0.9 (0.9-1.1) Activated Partial Thromboplast Time 25 SEC (23-33) Sodium Level 142 MMOL/L (136-145) 139 MMOL/L (136-145) Potassium Level 3.9 MMOL/L (3.5-5.1) 3.9 MMOL/L (3.5-5.1) Chloride Level 103 MMOL/L (98-107) 104 MMOL/L (98-107) Carbon Dioxide Level 26 MMOL/L (21-32) 25 MMOL/L (21-32) Anion Gap 13 mmol/L (5-15) 10 mmol/L (5-15) Blood Urea Nitrogen 12 mg/dL (7-18) 9 mg/dL (7-18) Creatinine 1.0 MG/DL (0.55-1.30) 0.8 MG/DL (0.55-1.30) Estimat Glomerular Filtration Rate > 60 mL/min (>60) > 60 mL/min (>60) Glucose Level 126 MG/DL (74-106) H 110 MG/DL (74-106) H Calcium Level 9.3 MG/DL (8.5-10.1) 8.6 MG/DL (8.5-10.1) Total Bilirubin 0.6 MG/DL (0.2-1.0) 0.9 MG/DL (0.2-1.0) Aspartate Amino Transf (AST/SGOT) 14 U/L (15-37) L 16 U/L (15-37) Alanine Aminotransferase (ALT/SGPT) 33 U/L (12-78) 32 U/L (12-78) Alkaline Phosphatase 31 U/L (46-116) L 28 U/L (46-116) L Total Protein 7.6 G/DL (6.4-8.2) 7.2 G/DL (6.4-8.2) Albumin 4.1 G/DL (3.4-5.0) 3.7 G/DL (3.4-5.0) Globulin 3.5 g/dL 3.5 g/dL Albumin/Globulin Ratio 1.2 (1.0-2.7) 1.1 (1.0-2.7) Lipase > 2000 U/L (73-393) H > 2000 U/L (73-393) H Urine Color Yellow Urine Appearance Clear Urine pH 5 (4.5-8.0) Urine Specific [place] 1.020 (1.005-1.035) Urine Protein Negative (NEGATIVE) Urine Glucose (UA) Negative (NEGATIVE) Urine Ketones Negative (NEGATIVE) Urine Blood Negative (NEGATIVE) Urine Nitrite Negative (NEGATIVE) Urine Bilirubin Negative (NEGATIVE) Urine Urobilinogen 1 MG/DL (0.0-1.0) H Urine Leukocyte Esterase Negative (NEGATIVE) Differential Total Cells Counted 100 Neutrophils % (Manual) 82 % (45-75) H Lymphocytes % (Manual) 11 % (20-45) L Monocytes % (Manual) 7 % (1-10) Eosinophils % (Manual) 0 % (0-3) Basophils % (Manual) 0 % (0-2) Band Neutrophils 0 % (0-8) Platelet Estimate Adequate Platelet Morphology Normal Red Blood Cell Morphology Normal Height (Feet): 5 Height (Inches): 11.00 Weight (Pounds): 270 Medications Current Medications Medications (Trade) Dose Ordered Sig/Shell Route PRN Reason Start Time Stop Time Status Last Admin Dose Admin Acetaminophen (Tylenol) 650 mg Q4H PRN ORAL Temp >100 07/03/19 23:15 08/02/19 23:14 Barium Sulfate (Readi-Cat 2) 450 ml NOW PRN ORAL Radiology Procedure 07/03/19 20:30 07/05/19 20:25 Iohexol (OMNIPAQUE-300 100ml) 100 ml NOW PRN INJ Radiology Procedure 07/03/19 20:30 07/05/19 20:25 Morphine Sulfate (Morphine Sulfate) 4 mg Q4H PRN IVP Severe Pain (Pain Scale 7-10) 07/03/19 23:15 07/10/19 23:14 07/04/19 15:47 Ondansetron HCl (Zofran) 4 mg Q6H PRN IVP Nausea & Vomiting 07/03/19 23:15 08/02/19 23:14 07/04/19 06:49 Sodium Chloride 1,000 ml @ 150 mls/hr Q6H40M IV 07/04/19 10:30 08/03/19 10:29 07/04/19 17:38 Assessment/Plan Assessment/Plan: (1) Abdominal pain (2) Pancreatitis Seen dictated Danie Orosco July 04, 2019 17:48
--- NOTE | 2019-07-04 19:30 | NUR ---
NURSE NOTES: Receive a report from ALICIA Bynum. Round is done. Pt is awake and alert. No acute distress noted. Pain is tolerating at this time. On NPO with IV fluid hydration. Call light within reach. Will continue to monitor.
[2019-07-04 20:00] VITALS: BP 149/91
--- NOTE | 2019-07-04 21:00 | NUR ---
NURSE NOTES: Noted BT 100.3. No chilling/febrile sense noted. Given Tylenol 650mg po as ordered. Apply cooling measures. Will continue to monitor.
--- NOTE | 2019-07-04 22:44 | Consultation ---
DATE OF CONSULTATION: 07/04/2019 INFECTIOUS DISEASE CONSULTATION CONSULTING PHYSICIAN: Brett Drummond MD. PRIMARY ATTENDING: Tonya Jackson MD. REASON FOR CONSULT: Acute pancreatitis. HISTORY OF PRESENT ILLNESS: This is a 28-year-old male admitted yesterday complaining of nausea, vomiting, and epigastric pain. Patient has a history of pancreatitis [address] scan of the abdomen and pelvis showed acute pancreatitis. PAST MEDICAL HISTORY: Hypertension, history of pancreatitis, history of cholecystectomy. ALLERGIES: No known drug allergies. MEDICATIONS: Sodium chloride, morphine sulfate, Zofran, Tylenol. SOCIAL HISTORY: Single, but lives with somebody. Denies alcohol, drug abuse, or smoking. Works as a [employer]. REVIEW OF SYSTEMS: Nausea. Had 1 episode of vomiting yesterday. No fever. No chills. No cough. No chest pain. Has epigastric pain on and off. No ear problem. PHYSICAL EXAMINATION: VITAL SIGNS: Temperature 97.6, pulse 78, blood pressure 144/83. GENERAL APPEARANCE: No acute distress. Overweight, obese. HEAD AND NECK: [place] conjunctivae. HEART: Normal rate. LUNGS: Clear. ABDOMEN: Soft. EXTREMITIES: No edema. NEUROLOGIC: He is awake, alert, oriented x3. LABORATORY AND DIAGNOSTIC DATA: Sodium 139, potassium 3.9, chloride 104, bicarbonate 25, BUN 9, creatinine 0.8, glucose 110. Lipase more than 2000. UA was negative. CT scan of the abdomen and pelvis showed acute pancreatitis with pancreatic ascites, no pseudocyst, mild fatty liver, status post cholecystectomy. IMPRESSION: Acute pancreatitis, cause unknown, may be related to alcohol ingestion. Has mild fatty liver, hypertension. RECOMMENDATION: Observe off antibiotic. At the end of my exam, I thank Dr. Jackson for involving me in the care of this patient. Brett Drummond M.D. DR: Elizabeth JOB#: [id number] CC:
--- NOTE | 2019-07-04 23:29 | History and Physical Report ---
DATE OF ADMISSION: 07/03/2019 HISTORY OF PRESENT ILLNESS: The patient is admitted for pancreatitis, episodes greater than 2000. The patient had a cholecystectomy. Denies significant alcohol intake. Does have some abdominal pain. The patient basically denies nausea. Reports of associated nausea and vomiting. The patient has prior history of cholecystectomy. The patient denies any alcohol abuse. Denies any hematemesis or bloody stools. Denies shortness of breath. Denies cough. Basically, he was admitted for pancreatitis. PAST MEDICAL HISTORY: History of pancreatitis and hypertension. PAST SURGICAL HISTORY: Cholecystectomy. FAMILY HISTORY: Noncontributory. SOCIAL HISTORY: Denies smoking. Denies alcohol abuse. No history of drug abuse. MEDICATIONS: None. ALLERGIES: No known allergies. REVIEW OF SYSTEMS: HEENT: Denies headaches. RESPIRATORY: Denies shortness of breath. Denies cough. CARDIOVASCULAR: Denies chest pain. No orthopnea. GASTROINTESTINAL: Reports abdominal pain for couple of days associated with nausea and vomiting. No rectal bleeding. EXTREMITIES: Denies pain in lower extremities. NEUROLOGIC: Change in speech pattern. PHYSICAL EXAMINATION: VITAL SIGNS: Temperature is 98.2, pulse 72 and blood pressure 147/88. HEENT: PERRLA. EOMI. NECK: Supple. No lymphadenopathy. CHEST: Clear to auscultation. CARDIOVASCULAR: Regular rate and rhythm. No murmurs or extra sounds. GASTROINTESTINAL: Epigastric tenderness. No rebound. ABDOMEN: Soft. No organomegaly. EXTREMITIES: No edema. He moves all four extremities. Reflexes equal on both sides. LABORATORY DATA: WBC of 11.7, hemoglobin 14.8, platelets of 211. Sodium 142, potassium 3.9, BUN of 12, creatinine 1, glucose of 126, and lipase of greater than 2000. ASSESSMENT AND PLAN: Pancreatitis. Status post cholecystectomy. No history of alcohol abuse. We are not sure that this 1 was causing the pancreatitis. We will keep the patient NPO, give IV fluids. I have also consulted Dr. Gurrola for pain management, Dr. Brett Drummond for any infectious etiology and Dr. Heber Rodriguez and Dr. Grove for the management of the abdominal pain and see if the patient needs any surgery at this point. Antibiotics per Dr. Brett Drummond and Dr. Fitzpatrick. Ali Hadley Jackson DR: Darlene JOB#: [id number] CC:
[2019-07-05] VITALS: BP 143/85
--- NOTE | 2019-07-05 02:45 | Consultation ---
DATE OF CONSULTATION: 07/04/2019 PAIN MANAGEMENT CONSULTATION CONSULTING PHYSICIAN: Xochitl Gurrola MD REFERRING PHYSICIAN: Tonya Jackson MD PHYSICIAN NURSERY RN: CINDY Zaragoza CHIEF COMPLAINT: Abdominal pain. HISTORY OF PRESENT ILLNESS: This is a 28-year-old male who is being seen on the Med/Surg floor of [facility] for initial pain management consultation. The patient was admitted under the care of Dr. Jackson due to abdominal pain, found to have pancreatitis, which started yesterday. It is constant, acute pain, rating 10/10 at its worst, now it is 4/10. He described the pain as a pressure, increased with eating, and reduced with medication. He was seen by change control analyst and surgeon. He was on morphine 4 mg IV every 4 hours as needed for severe pain, which patient has taken as needed for the pain, which has kept his pain at a tolerable level. We were consulted so the patient would have adequate pain control while here in the hospital. PAST MEDICAL HISTORY: Morbid obesity, hypertension. PAST SURGICAL HISTORY: Denies. SOCIAL HISTORY: Drinks alcohol occasionally. Denies tobacco usage and IV drug abuse. ALLERGIES: No known drug allergies. MEDICATIONS: Aspirin, lisinopril, lorazepam, ranitidine. REVIEW OF SYSTEMS: Denies rash, fever, chills, sweating, dizziness, drowsiness, blurred vision, sore throat, shortness of breath or chest pain. No nausea, vomiting, diarrhea, blood in the stool or urine. No dysuria. He is complaining of abdominal pain. PHYSICAL EXAMINATION: GENERAL: Alert, awake, and oriented. VITAL SIGNS: Blood pressure 149/75, heart rate 81, oxygen saturation 97, respiratory rate 21, temperature 98.9 degrees Fahrenheit. HEENT: PERRLA. NECK: Range of motion is full in all directions. No tenderness to paracervical muscles. No adenopathy. LUNGS: Decreased breath sounds bilaterally. HEART: S1 and S2 regular. ABDOMEN: Obese with tenderness present. BACK: Range of motion is full on flexion and extension. EXTREMITIES: Upper extremity motion is full in all directions. No cyanosis. No clubbing. Sensory is intact. Reflexes are not obtainable. No adenopathy. ASSESSMENT AND PLAN: This is a 28-year-old male with abdominal pain, pancreatitis. Patient will be continued on morphine as needed. The patient was discussed with Dr. Gurrola and Dr. Gurrola concurred. We will follow the patient. Thank you very much for the courtesy of this consultation. Xochitl Gurrola M.D. CINDY Zaragoza DR: ELIS JOB#: [id number] CC:
[2019-07-05 04:00] VITALS: BP 130/80
--- NOTE | 2019-07-05 06:00 | NUR ---
NURSE NOTES: Pain is tolerating, 2/10. On NPO. Will follow up lab results.
[2019-07-05 07:07] LABS: BASOPHILS % (AUTO) 0.5 % (0.0-2.0); EOSINOPHILS % (AUTO) 1.5 % (0.0-3.0); HEMATOCRIT 40.2 % (42.0-52.0); HEMOGLOBIN 14.4 G/DL (14.2-18.0); LYMPHOCYTES % (AUTO) 19.8 % (20.0-45.0); MEAN CORPUSCULAR VOLUME 82 FL (80-99); NEUTROPHILS % (AUTO) 70.3 % (45.0-75.0); PLATELET COUNT 168 K/UL (150-450); RED CELL DISTRIBUTION WIDTH 10.9 % (11.6-14.8); WHITE BLOOD COUNT 10.3 K/UL (4.8-10.8)
--- NOTE | 2019-07-05 07:30 | NUR ---
HAND-OFF: Report given to ALICIA Shields.
[2019-07-05 07:39] LABS: ALANINE AMINOTRANSFERASE 32 U/L (12-78); ALBUMIN 3.6 G/DL (3.4-5.0); ALKALINE PHOSPHATASE 33 U/L (46-116); ANION GAP 9 mmol/L (5-15); ASPARTATE AMINO TRANSFERASE 19 U/L (15-37); BILIRUBIN,TOTAL 1.5 MG/DL (0.2-1.0); BLOOD UREA NITROGEN 7 mg/dL (7-18); CALCIUM 8.7 MG/DL (8.5-10.1); CARBON DIOXIDE 29 MMOL/L (21-32); CHLORIDE 101 MMOL/L (98-107); CHOLESTEROL 143 MG/DL (< 200); CREATININE 0.8 MG/DL (0.55-1.30); HDL CHOLESTEROL 25 MG/DL (40-60); SODIUM 138 MMOL/L (136-145); TRIGLYCERIDES 94 MG/DL (30-150)
[2019-07-05 07:45] LABS: AMYLASE 502 U/L (25-115)
[2019-07-05 07:46] LABS: BILIRUBIN,DIRECT 0.3 MG/DL (0.0-0.3)
[2019-07-05 08:00] VITALS: BP 134/73
--- NOTE | 2019-07-05 08:18 | NUR ---
NURSE NOTES: Received report from Gho RN. Patient is awake and oriented, no acute distress noted, reporting no pain. IVF running per order. Patient requested to contact Dr. Grove for diet order, patient is passing flatus. Called and notified Dr. Grove of critical lab value amylase 502, MD is aware and did not give further orders regarding critical lab value. Notified MD that patient is requesting a diet and MD gave order for clear liquid diet. Order read back and entered. Will continue plan of care.
[2019-07-05] MEDS: Morphine Sulfate 4mg/ml Inj (IV USE ONLY) IVP PRN ×3 (09:24→23:50)
--- NOTE | 2019-07-05 09:39 | General Progress Note ---
Assessment/Plan Assessment/Plan: (1) Abdominal pain (2) Pancreatitis Pt to be continued on Morphine D/w Dr. Gurrola and he concurred. Subjective Date patient seen: July 05, 2019 Time patient seen: 09:00 - am Constitutional: Reports: no symptoms HEENT: Reports: no symptoms Cardiovascular: Reports: no symptoms Respiratory: Reports: no symptoms Gastrointestinal/Abdominal: Reports: abdominal pain Genitourinary: Reports: no symptoms Neurologic/Psychiatric: Reports: no symptoms Endocrine: Reports: no symptoms Hematologic/Lymphatic: Reports: no symptoms Allergies: Coded Allergies: No Known Allergies (Unverified , 09/20/12) Subjective Patient is in bed and continues to c/o abdominal pain rating it a moderate level at this time. Using 5 doses in the last 24hrs. No new complaints at this time Objective Last 24 Hour Vital Signs Date Time Temp Pulse Resp B/P (MAP) Pulse Ox O2 Delivery O2 Flow Rate FiO2 07/05/19 08:00 100.0 83 16 134/73 (93) 94 07/05/19 04:00 99.5 85 20 130/80 (97) 94 07/05/19 00:00 99.8 85 20 143/85 (104) 96 07/04/19 22:04 99.4 07/04/19 22:00 99.3 07/04/19 21:00 Room Air 07/04/19 20:00 100.3 92 21 149/91 (110) 94 07/04/19 16:00 98.9 81 21 149/75 (99) 97 07/04/19 12:00 97.6 78 18 144/83 (103) 96 78 Intake and Output 07/04/19 07/05/19 19:00 07:00 Intake Total 1800 ml Balance 1800 ml Intake IV Total 1800 ml # Voids 4 Laboratory Tests 07/05/19 05:00: White Blood Count 10.3, Red Blood Count 4.90, Hemoglobin 14.4, Hematocrit 40.2L , Mean Corpuscular Volume 82, Mean Corpuscular Hemoglobin 29.4, Mean Corpuscular Hemoglobin Concent 35.8, Red Cell Distribution Width 10.9L, Platelet Count 168, Mean Platelet Volume 7.0, Neutrophils (%) (Auto) 70.3, Lymphocytes (%) (Auto) 19.8L, Monocytes (%) (Auto) 8.0, Eosinophils (%) (Auto) 1.5, Basophils (%) (Auto) 0.5, Sodium Level 138, Potassium Level 4.0, Chloride Level 101, Carbon Dioxide Level 29, Anion Gap 9, Blood Urea Nitrogen 7, Creatinine 0.8, Estimat Glomerular Filtration Rate > 60, Glucose Level 76, Calcium Level 8.7, Total Bilirubin 1.5H, Direct Bilirubin 0.3, Aspartate Amino Transf (AST/SGOT) 19, Alanine Aminotransferase (ALT/SGPT) 32, Alkaline Phosphatase 33L, Total Protein 7.1, Albumin 3.6, Globulin 3.5, Albumin/Globulin Ratio 1.0, Triglycerides Level 94, Cholesterol Level 143, LDL Cholesterol 100, HDL Cholesterol 25L, Cholesterol/HDL Ratio 5.7H, Amylase Level 502*H, Lipase > 2000H Height (Feet): 5 Height (Inches): 11.00 Weight (Pounds): 270 General Appearance: no apparent distress, alert EENT: PERRL/EOMI, normal ENT inspection Neck: non-tender, normal alignment Cardiovascular: normal rate, regular rhythm Respiratory/Chest: lungs clear, normal breath sounds Abdomen: tender Extremities: non-tender Edema: no edema noted Generalized Neurologic: alert, oriented x 3 Skin: normal pigmentation Danie Orosco July 05, 2019 09:39
--- NOTE | 2019-07-05 10:32 | NUR ---
*-* INSURANCE *-* ALL AVAILABLE CLINICALS HAVE BEEN FAXED TO: Ref#[id number] #[phone] fax#[phone]
--- NOTE | 2019-07-05 10:36 | Infectious Diseases Prog Note ---
Assessment/Plan Assessment/Plan IMPRESSION: Acute pancreatitis, Fatty liver, Hypertension. RECOMMENDATION: Observe off antibiotic. Subjective ROS Limited/Unobtainable: Yes Constitutional: Reports: fever, other - T=100 Allergies: Coded Allergies: No Known Allergies (Unverified , 09/20/12) Objective Vital Signs Last 24 Hour Vital Signs Date Time Temp Pulse Resp B/P (MAP) Pulse Ox O2 Delivery O2 Flow Rate FiO2 07/05/19 08:00 100.0 83 16 134/73 (93) 94 07/05/19 04:00 99.5 85 20 130/80 (97) 94 07/05/19 00:00 99.8 85 20 143/85 (104) 96 07/04/19 22:04 99.4 07/04/19 22:00 99.3 07/04/19 21:00 Room Air 07/04/19 20:00 100.3 92 21 149/91 (110) 94 07/04/19 16:00 98.9 81 21 149/75 (99) 97 07/04/19 12:00 97.6 78 18 144/83 (103) 96 78 Height (Feet): 5 Height (Inches): 11.00 Weight (Pounds): 270 General Appearance: no acute distress HEENT: mucous membranes moist Respiratory/Chest: lungs clear Cardiovascular: normal rate Abdomen: other - soft Extremities: no edema Neurologic/Psychiatric: other - sleeping Laboratory Tests Test 07/05/19 05:00 White Blood Count 10.3 K/UL (4.8-10.8) Red Blood Count 4.90 M/UL (4.70-6.10) Hemoglobin 14.4 G/DL (14.2-18.0) Hematocrit 40.2 % (42.0-52.0) L Mean Corpuscular Volume 82 FL (80-99) Mean Corpuscular Hemoglobin 29.4 PG (27.0-31.0) Mean Corpuscular Hemoglobin Concent 35.8 G/DL (32.0-36.0) Red Cell Distribution Width 10.9 % (11.6-14.8) L Platelet Count 168 K/UL (150-450) Mean Platelet Volume 7.0 FL (6.5-10.1) Neutrophils (%) (Auto) 70.3 % (45.0-75.0) Lymphocytes (%) (Auto) 19.8 % (20.0-45.0) L Monocytes (%) (Auto) 8.0 % (1.0-10.0) Eosinophils (%) (Auto) 1.5 % (0.0-3.0) Basophils (%) (Auto) 0.5 % (0.0-2.0) Sodium Level 138 MMOL/L (136-145) Potassium Level 4.0 MMOL/L (3.5-5.1) Chloride Level 101 MMOL/L (98-107) Carbon Dioxide Level 29 MMOL/L (21-32) Anion Gap 9 mmol/L (5-15) Blood Urea Nitrogen 7 mg/dL (7-18) Creatinine 0.8 MG/DL (0.55-1.30) Estimat Glomerular Filtration Rate > 60 mL/min (>60) Glucose Level 76 MG/DL (74-106) Calcium Level 8.7 MG/DL (8.5-10.1) Total Bilirubin 1.5 MG/DL (0.2-1.0) H Direct Bilirubin 0.3 MG/DL (0.0-0.3) Aspartate Amino Transf (AST/SGOT) 19 U/L (15-37) Alanine Aminotransferase (ALT/SGPT) 32 U/L (12-78) Alkaline Phosphatase 33 U/L (46-116) L Total Protein 7.1 G/DL (6.4-8.2) Albumin 3.6 G/DL (3.4-5.0) Globulin 3.5 g/dL Albumin/Globulin Ratio 1.0 (1.0-2.7) Triglycerides Level 94 MG/DL (30-150) Cholesterol Level 143 MG/DL (< 200) LDL Cholesterol 100 mg/dL (<100) HDL Cholesterol 25 MG/DL (40-60) L Cholesterol/HDL Ratio 5.7 (3.3-4.4) H Amylase Level 502 U/L (25-115) *H Lipase > 2000 U/L (73-393) H Current Medications Medications (Trade) Dose Ordered Sig/Shell Route PRN Reason Start Time Stop Time Status Last Admin Dose Admin Acetaminophen (Tylenol) 650 mg Q4H PRN ORAL Temp >100 07/03/19 23:15 08/02/19 23:14 07/04/19 21:34 Barium Sulfate (Readi-Cat 2) 450 ml NOW PRN ORAL Radiology Procedure 07/03/19 20:30 07/05/19 20:25 Iohexol (OMNIPAQUE-300 100ml) 100 ml NOW PRN INJ Radiology Procedure 07/03/19 20:30 07/05/19 20:25 Morphine Sulfate (Morphine Sulfate) 4 mg Q4H PRN IVP Severe Pain (Pain Scale 7-10) 07/03/19 23:15 07/10/19 23:14 07/05/19 09:24 Ondansetron HCl (Zofran) 4 mg Q6H PRN IVP Nausea & Vomiting 07/03/19 23:15 08/02/19 23:14 07/04/19 06:49 Sodium Chloride 1,000 ml @ 150 mls/hr Q6H40M IV 07/04/19 10:30 08/03/19 10:29 07/05/19 06:30 Brett Drummond MD July 05, 2019 10:36
--- NOTE | 2019-07-05 10:59 | General Progress Note ---
Assessment/Plan Assessment/Plan: pancreatitis ? cause post kaia min ETOH IVF 150 cc repeat labs pain Control start clears will fu Subjective ROS Limited/Unobtainable: Yes Allergies: Coded Allergies: No Known Allergies (Unverified , 09/20/12) Objective Last 24 Hour Vital Signs Date Time Temp Pulse Resp B/P (MAP) Pulse Ox O2 Delivery O2 Flow Rate FiO2 07/05/19 09:00 Room Air 07/05/19 08:00 100.0 83 16 134/73 (93) 94 07/05/19 04:00 99.5 85 20 130/80 (97) 94 07/05/19 00:00 99.8 85 20 143/85 (104) 96 07/04/19 22:04 99.4 07/04/19 22:00 99.3 07/04/19 21:00 Room Air 07/04/19 20:00 100.3 92 21 149/91 (110) 94 07/04/19 16:00 98.9 81 21 149/75 (99) 97 07/04/19 12:00 97.6 78 18 144/83 (103) 96 78 Intake and Output 07/04/19 07/05/19 19:00 07:00 Intake Total 1800 ml Balance 1800 ml Intake IV Total 1800 ml # Voids 4 Laboratory Tests 07/05/19 05:00: White Blood Count 10.3, Red Blood Count 4.90, Hemoglobin 14.4, Hematocrit 40.2L , Mean Corpuscular Volume 82, Mean Corpuscular Hemoglobin 29.4, Mean Corpuscular Hemoglobin Concent 35.8, Red Cell Distribution Width 10.9L, Platelet Count 168, Mean Platelet Volume 7.0, Neutrophils (%) (Auto) 70.3, Lymphocytes (%) (Auto) 19.8L, Monocytes (%) (Auto) 8.0, Eosinophils (%) (Auto) 1.5, Basophils (%) (Auto) 0.5, Sodium Level 138, Potassium Level 4.0, Chloride Level 101, Carbon Dioxide Level 29, Anion Gap 9, Blood Urea Nitrogen 7, Creatinine 0.8, Estimat Glomerular Filtration Rate > 60, Glucose Level 76, Calcium Level 8.7, Total Bilirubin 1.5H, Direct Bilirubin 0.3, Aspartate Amino Transf (AST/SGOT) 19, Alanine Aminotransferase (ALT/SGPT) 32, Alkaline Phosphatase 33L, Total Protein 7.1, Albumin 3.6, Globulin 3.5, Albumin/Globulin Ratio 1.0, Triglycerides Level 94, Cholesterol Level 143, LDL Cholesterol 100, HDL Cholesterol 25L, Cholesterol/HDL Ratio 5.7H, Amylase Level 502*H, Lipase > 2000H Height (Feet): 5 Height (Inches): 11.00 Weight (Pounds): 270 General Appearance: alert EENT: normal ENT inspection Neck: supple Cardiovascular: normal rate Respiratory/Chest: decreased breath sounds Abdomen: soft, hypoactive bowel sounds, tender Extremities: non-tender Nixon Grove MD July 05, 2019 10:59
[2019-07-05 12:00] VITALS: BP 121/76
[2019-07-05 16:00] VITALS: BP 130/74
--- NOTE | 2019-07-05 16:36 | General Progress Note ---
Assessment/Plan Problem List: (1) Palpitations (2) Palpitations ICD Codes: R00.2 - Palpitations SNOMED: 15707524 (3) Pancreatitis ICD Codes: K85.90 - Acute pancreatitis without necrosis or infection, unspecified SNOMED: 68227055 Qualifiers: Qualified Codes: K85.80 - Other acute pancreatitis without necrosis or infection Status: progressing Assessment/Plan: pancreatitis afebrile abdominal pain check lipase Subjective ROS Limited/Unobtainable: Yes Allergies: Coded Allergies: No Known Allergies (Unverified , 09/20/12) Objective Last 24 Hour Vital Signs Date Time Temp Pulse Resp B/P (MAP) Pulse Ox O2 Delivery O2 Flow Rate FiO2 07/05/19 13:57 99.2 07/05/19 12:00 100.6 86 16 121/76 (91) 93 07/05/19 09:00 Room Air 07/05/19 08:00 100.0 83 16 134/73 (93) 94 07/05/19 04:00 99.5 85 20 130/80 (97) 94 07/05/19 00:00 99.8 85 20 143/85 (104) 96 07/04/19 22:00 99.3 07/04/19 21:00 Room Air 07/04/19 20:00 100.3 92 21 149/91 (110) 94 Intake and Output 07/04/19 07/05/19 19:00 07:00 Intake Total 1800 ml Balance 1800 ml Intake IV Total 1800 ml # Voids 4 Laboratory Tests 07/05/19 05:00: White Blood Count 10.3, Red Blood Count 4.90, Hemoglobin 14.4, Hematocrit 40.2L , Mean Corpuscular Volume 82, Mean Corpuscular Hemoglobin 29.4, Mean Corpuscular Hemoglobin Concent 35.8, Red Cell Distribution Width 10.9L, Platelet Count 168, Mean Platelet Volume 7.0, Neutrophils (%) (Auto) 70.3, Lymphocytes (%) (Auto) 19.8L, Monocytes (%) (Auto) 8.0, Eosinophils (%) (Auto) 1.5, Basophils (%) (Auto) 0.5, Sodium Level 138, Potassium Level 4.0, Chloride Level 101, Carbon Dioxide Level 29, Anion Gap 9, Blood Urea Nitrogen 7, Creatinine 0.8, Estimat Glomerular Filtration Rate > 60, Glucose Level 76, Calcium Level 8.7, Total Bilirubin 1.5H, Direct Bilirubin 0.3, Aspartate Amino Transf (AST/SGOT) 19, Alanine Aminotransferase (ALT/SGPT) 32, Alkaline Phosphatase 33L, Total Protein 7.1, Albumin 3.6, Globulin 3.5, Albumin/Globulin Ratio 1.0, Triglycerides Level 94, Cholesterol Level 143, LDL Cholesterol 100, HDL Cholesterol 25L, Cholesterol/HDL Ratio 5.7H, Amylase Level 502*H, Lipase > 2000H Height (Feet): 5 Height (Inches): 11.00 Weight (Pounds): 270 Tonya Jackson MD July 05, 2019 16:36
--- NOTE | 2019-07-05 18:11 | Surgery Progress Note ---
Surgery Progress Note Subjective Additional Comments states pain improved tolerating diet no n/v Objective Last 24 Hour Vital Signs Date Time Temp Pulse Resp B/P (MAP) Pulse Ox O2 Delivery O2 Flow Rate FiO2 07/05/19 16:00 99.1 82 16 130/74 (92) 95 07/05/19 13:57 99.2 07/05/19 12:00 100.6 86 16 121/76 (91) 93 07/05/19 09:00 Room Air 07/05/19 08:00 100.0 83 16 134/73 (93) 94 07/05/19 04:00 99.5 85 20 130/80 (97) 94 07/05/19 00:00 99.8 85 20 143/85 (104) 96 07/04/19 22:00 99.3 07/04/19 21:00 Room Air 07/04/19 20:00 100.3 92 21 149/91 (110) 94 I&O Intake and Output 07/04/19 07/05/19 19:00 07:00 Intake Total 1800 ml Balance 1800 ml Intake IV Total 1800 ml # Voids 4 Cardiovascular: RSR Respiratory: clear Abdomen: soft, flat, non-tender, present bowel sounds Extremities: no edema, no tenderness, no cyanosis Laboratory Tests Test 07/05/19 05:00 White Blood Count 10.3 K/UL (4.8-10.8) Red Blood Count 4.90 M/UL (4.70-6.10) Hemoglobin 14.4 G/DL (14.2-18.0) Hematocrit 40.2 % (42.0-52.0) L Mean Corpuscular Volume 82 FL (80-99) Mean Corpuscular Hemoglobin 29.4 PG (27.0-31.0) Mean Corpuscular Hemoglobin Concent 35.8 G/DL (32.0-36.0) Red Cell Distribution Width 10.9 % (11.6-14.8) L Platelet Count 168 K/UL (150-450) Mean Platelet Volume 7.0 FL (6.5-10.1) Neutrophils (%) (Auto) 70.3 % (45.0-75.0) Lymphocytes (%) (Auto) 19.8 % (20.0-45.0) L Monocytes (%) (Auto) 8.0 % (1.0-10.0) Eosinophils (%) (Auto) 1.5 % (0.0-3.0) Basophils (%) (Auto) 0.5 % (0.0-2.0) Sodium Level 138 MMOL/L (136-145) Potassium Level 4.0 MMOL/L (3.5-5.1) Chloride Level 101 MMOL/L (98-107) Carbon Dioxide Level 29 MMOL/L (21-32) Anion Gap 9 mmol/L (5-15) Blood Urea Nitrogen 7 mg/dL (7-18) Creatinine 0.8 MG/DL (0.55-1.30) Estimat Glomerular Filtration Rate > 60 mL/min (>60) Glucose Level 76 MG/DL (74-106) Calcium Level 8.7 MG/DL (8.5-10.1) Total Bilirubin 1.5 MG/DL (0.2-1.0) H Direct Bilirubin 0.3 MG/DL (0.0-0.3) Aspartate Amino Transf (AST/SGOT) 19 U/L (15-37) Alanine Aminotransferase (ALT/SGPT) 32 U/L (12-78) Alkaline Phosphatase 33 U/L (46-116) L Total Protein 7.1 G/DL (6.4-8.2) Albumin 3.6 G/DL (3.4-5.0) Globulin 3.5 g/dL Albumin/Globulin Ratio 1.0 (1.0-2.7) Triglycerides Level 94 MG/DL (30-150) Cholesterol Level 143 MG/DL (< 200) LDL Cholesterol 100 mg/dL (<100) HDL Cholesterol 25 MG/DL (40-60) L Cholesterol/HDL Ratio 5.7 (3.3-4.4) H Amylase Level 502 U/L (25-115) *H Lipase > 2000 U/L (73-393) H Plan Problems: (1) Pancreatitis Assessment & Plan: 28 year old male with acute pancreatitis not etoh induced. not gallstones as hx of lap kaia similar prior events etiology still under workup possible idiopathic / autoimmune pain still lip >2k on admission npo iv fluids iv abx will follow with clinical exam pain control thank you ABDOMEN: Liver: Mild fatty liver. Gallbladder and bile ducts: Cholecystectomy. Pancreas: Pancreatitis with pancreatic ascites. No pseudocyst. Spleen: Unremarkable. Adrenals: Unremarkable. Kidneys and ureters: Unremarkable. No hydronephrosis. Stomach and bowel: Reactive changes in the stomach and duodenum secondary to the pancreatitis PELVIS: Appendix: No findings to suggest acute appendicitis. Bladder: Unremarkable. Reproductive: Unremarkable. ABDOMEN and PELVIS: Intraperitoneal space: See above. Bones/joints: No acute fracture. Soft tissues: Unremarkable. Vasculature: Unremarkable. No abdominal aortic aneurysm. Lymph nodes: No enlarged lymph nodes. IMPRESSION: Pancreatitis with pancreatic ascites. No pseudocyst. Heber Rodriguez July 05, 2019 18:11
--- NOTE | 2019-07-05 19:24 | NUR ---
HAND-OFF: Report given to Conor VARGAS.
--- NOTE | 2019-07-05 19:25 | NUR ---
NURSE NOTES: Received report from Alyson VARGAS. Rounding is done. Patient is a/ox4 and Denied any pain or distress at this time. IV site is intact and iv fluid is running. Bed is on alarm, locked, and lowest position. Call light within reach. Will continue to monitor.
[2019-07-05 20:00] VITALS: BP 129/83
[2019-07-06] VITALS: BP 133/85
[2019-07-06 04:00] VITALS: BP 138/82
[2019-07-06 06:36] LABS: BASOPHILS % (AUTO) 0.8 % (0.0-2.0); EOSINOPHILS % (AUTO) 2.2 % (0.0-3.0); HEMATOCRIT 37.5 % (42.0-52.0); HEMOGLOBIN 13.4 G/DL (14.2-18.0); LYMPHOCYTES % (AUTO) 21.2 % (20.0-45.0); MEAN CORPUSCULAR VOLUME 83 FL (80-99); MONOCYTES % (AUTO) 7.9 % (1.0-10.0); NEUTROPHILS % (AUTO) 67.9 % (45.0-75.0); PLATELET COUNT 168 K/UL (150-450); RED BLOOD COUNT 4.54 M/UL (4.70-6.10); RED CELL DISTRIBUTION WIDTH 10.7 % (11.6-14.8); WHITE BLOOD COUNT 10.1 K/UL (4.8-10.8)
--- NOTE | 2019-07-06 07:13 | NUR ---
NURSE NOTES: Report received from Conor RN, rounds made. Patient resting in high fowlers position in bed. Denies NV, SOB or need for pain medication at this time. IV 0.45 NS at 150 ml/hr via RAC, site asymptomatic. Abdomen soft, rounded, tender. Call light in reach, bed in lowest position, will continue to monitor.
--- NOTE | 2019-07-06 07:30 | NUR ---
HAND-OFF: Report given to Ene VARGAS. Patient in stable condition.
[2019-07-06 07:53] LABS: ALANINE AMINOTRANSFERASE 33 U/L (12-78); ALBUMIN 3.4 G/DL (3.4-5.0); ALBUMIN/GLOBULIN RATIO 0.9 (1.0-2.7); ALKALINE PHOSPHATASE 36 U/L (46-116); AMYLASE 182 U/L (25-115); ANION GAP 9 mmol/L (5-15); ASPARTATE AMINO TRANSFERASE 18 U/L (15-37); BILIRUBIN,TOTAL 1.2 MG/DL (0.2-1.0); BLOOD UREA NITROGEN 8 mg/dL (7-18); CALCIUM 8.7 MG/DL (8.5-10.1); CARBON DIOXIDE 28 MMOL/L (21-32); CHLORIDE 103 MMOL/L (98-107); CREATININE 0.8 MG/DL (0.55-1.30); POTASSIUM 3.9 MMOL/L (3.5-5.1); SODIUM 140 MMOL/L (136-145)
[2019-07-06 08:00] VITALS: BP 135/76
[2019-07-06 08:00] LABS: BILIRUBIN,DIRECT 0.3 MG/DL (0.0-0.3)
[2019-07-06] MEDS ORDERED: 1/2 NS 1000ml IV ONE (09:04)
--- NOTE | 2019-07-06 09:56 | General Progress Note ---
Assessment/Plan Assessment/Plan: (1) Abdominal pain (2) Pancreatitis Pt to be continued on Morphine An Rx for Tramadol will be written for patient in anticipation for discharge. D/w Dr. Gurrola and he concurred. Subjective Date patient seen: July 06, 2019 Time patient seen: 09:30 - am Allergies: Coded Allergies: No Known Allergies (Unverified , 09/20/12) Subjective Constitutional: Reports: no symptoms HEENT: Reports: no symptoms Cardiovascular: Reports: no symptoms Respiratory: Reports: no symptoms Gastrointestinal/Abdominal: Reports: abdominal pain Genitourinary: Reports: no symptoms Neurologic/Psychiatric: Reports: no symptoms Endocrine: Reports: no symptoms Hematologic/Lymphatic: Reports: no symptoms Subjective Patient has been feeling better still has some pain however it has been tolerated on the Morphine 7 doses in the last 24hrs. Objective Last 24 Hour Vital Signs Date Time Temp Pulse Resp B/P (MAP) Pulse Ox O2 Delivery O2 Flow Rate FiO2 07/06/19 04:00 99.5 79 17 138/82 (100) 95 07/06/19 00:00 98.8 76 18 133/85 (101) 96 07/05/19 21:41 100.1 07/05/19 21:00 Room Air 07/05/19 20:00 100.8 83 17 129/83 (98) 94 07/05/19 16:00 99.1 82 16 130/74 (92) 95 07/05/19 12:00 100.6 86 16 121/76 (91) 93 Intake and Output 07/05/19 07/06/19 19:00 07:00 Intake Total 2150 ml 900 ml Balance 2150 ml 900 ml Intake Oral 500 ml IV Total 1650 ml 900 ml # Voids 2 Laboratory Tests 07/06/19 05:10: White Blood Count 10.1, Red Blood Count 4.54L, Hemoglobin 13.4L, Hematocrit 37.5L, Mean Corpuscular Volume 83, Mean Corpuscular Hemoglobin 29.5, Mean Corpuscular Hemoglobin Concent 35.8, Red Cell Distribution Width 10.7L, Platelet Count 168, Mean Platelet Volume 7.0, Neutrophils (%) (Auto) 67.9, Lymphocytes (%) (Auto) 21.2, Monocytes (%) (Auto) 7.9, Eosinophils (%) (Auto) 2.2, Basophils (%) (Auto) 0.8, Sodium Level 140, Potassium Level 3.9, Chloride Level 103, Carbon Dioxide Level 28, Anion Gap 9, Blood Urea Nitrogen 8, Creatinine 0.8, Estimat Glomerular Filtration Rate > 60, Glucose Level 71L, Calcium Level 8.7, Total Bilirubin 1.2H, Direct Bilirubin 0.3, Aspartate Amino Transf (AST/SGOT) 18, Alanine Aminotransferase (ALT/SGPT) 33, Alkaline Phosphatase 36L, Total Protein 7.1, Albumin 3.4, Globulin 3.7, Albumin/Globulin Ratio 0.9L, Amylase Level 182H, Lipase 653H Height (Feet): 5 Height (Inches): 11.00 Weight (Pounds): 270 Objective General Appearance: no apparent distress, alert EENT: PERRL/EOMI, normal ENT inspection Neck: non-tender, normal alignment Cardiovascular: normal rate, regular rhythm Respiratory/Chest: lungs clear, normal breath sounds Abdomen: tender Extremities: non-tender Edema: no edema noted Generalized Neurologic: alert, oriented x 3 Skin: normal pigmentation Danie Orosco July 06, 2019 09:56
--- NOTE | 2019-07-06 10:28 | General Progress Note ---
Assessment/Plan Assessment/Plan: pancreatitis ? cause post kaia min ETOH IVF 150 cc repeat labs pain Control advance diet to full liquid will fu Subjective ROS Limited/Unobtainable: No Allergies: Coded Allergies: No Known Allergies (Unverified , 09/20/12) Objective Last 24 Hour Vital Signs Date Time Temp Pulse Resp B/P (MAP) Pulse Ox O2 Delivery O2 Flow Rate FiO2 07/06/19 04:00 99.5 79 17 138/82 (100) 95 07/06/19 00:00 98.8 76 18 133/85 (101) 96 07/05/19 21:41 100.1 07/05/19 21:00 Room Air 07/05/19 20:00 100.8 83 17 129/83 (98) 94 07/05/19 16:00 99.1 82 16 130/74 (92) 95 07/05/19 12:00 100.6 86 16 121/76 (91) 93 Intake and Output 07/05/19 07/06/19 19:02 07:02 Intake Total 2150 ml 900 ml Balance 2150 ml 900 ml Intake Oral 500 ml IV Total 1650 ml 900 ml # Voids 2 Laboratory Tests 07/06/19 05:10: White Blood Count 10.1, Red Blood Count 4.54L, Hemoglobin 13.4L, Hematocrit 37.5L, Mean Corpuscular Volume 83, Mean Corpuscular Hemoglobin 29.5, Mean Corpuscular Hemoglobin Concent 35.8, Red Cell Distribution Width 10.7L, Platelet Count 168, Mean Platelet Volume 7.0, Neutrophils (%) (Auto) 67.9, Lymphocytes (%) (Auto) 21.2, Monocytes (%) (Auto) 7.9, Eosinophils (%) (Auto) 2.2, Basophils (%) (Auto) 0.8, Sodium Level 140, Potassium Level 3.9, Chloride Level 103, Carbon Dioxide Level 28, Anion Gap 9, Blood Urea Nitrogen 8, Creatinine 0.8, Estimat Glomerular Filtration Rate > 60, Glucose Level 71L, Calcium Level 8.7, Total Bilirubin 1.2H, Direct Bilirubin 0.3, Aspartate Amino Transf (AST/SGOT) 18, Alanine Aminotransferase (ALT/SGPT) 33, Alkaline Phosphatase 36L, Total Protein 7.1, Albumin 3.4, Globulin 3.7, Albumin/Globulin Ratio 0.9L, Amylase Level 182H, Lipase 653H Height (Feet): 5 Height (Inches): 11.00 Weight (Pounds): 270 General Appearance: alert EENT: normal ENT inspection Neck: normal alignment Cardiovascular: normal rate Respiratory/Chest: decreased breath sounds Abdomen: normal bowel sounds, non tender, soft Extremities: non-tender Nixon Grove MD July 06, 2019 10:28
[2019-07-06] MEDS: Morphine Sulfate 4mg/ml Inj (IV USE ONLY) IVP PRN ×2 (11:00→17:25)
[2019-07-06 12:00] VITALS: BP 129/75
--- NOTE | 2019-07-06 12:46 | Infectious Diseases Prog Note ---
Assessment/Plan Assessment/Plan IMPRESSION: Fever Acute pancreatitis, Fatty liver, Hypertension. RECOMMENDATION: Observe off antibiotic. Subjective ROS Limited/Unobtainable: No Constitutional: Reports: fever, other - Df=686.8 Respiratory: Reports: no symptoms Cardiovascular: Reports: no symptoms Gastrointestinal/Abdominal: Reports: nausea; Denies: vomiting Genitourinary: Reports: no symptoms Allergies: Coded Allergies: No Known Allergies (Unverified , 09/20/12) Objective Vital Signs Last 24 Hour Vital Signs Date Time Temp Pulse Resp B/P (MAP) Pulse Ox O2 Delivery O2 Flow Rate FiO2 07/06/19 08:00 99.5 88 18 135/76 (95) 93 07/06/19 04:00 99.5 79 17 138/82 (100) 95 07/06/19 00:00 98.8 76 18 133/85 (101) 96 07/05/19 21:41 100.1 07/05/19 21:00 Room Air 07/05/19 20:00 100.8 83 17 129/83 (98) 94 07/05/19 16:00 99.1 82 16 130/74 (92) 95 Height (Feet): 5 Height (Inches): 11.00 Weight (Pounds): 270 General Appearance: no acute distress HEENT: mucous membranes moist Respiratory/Chest: lungs clear Cardiovascular: normal rate Abdomen: soft, non tender Extremities: no edema Neurologic/Psychiatric: alert, oriented x 3, responsive Laboratory Tests Test 07/06/19 05:10 White Blood Count 10.1 K/UL (4.8-10.8) Red Blood Count 4.54 M/UL (4.70-6.10) L Hemoglobin 13.4 G/DL (14.2-18.0) L Hematocrit 37.5 % (42.0-52.0) L Mean Corpuscular Volume 83 FL (80-99) Mean Corpuscular Hemoglobin 29.5 PG (27.0-31.0) Mean Corpuscular Hemoglobin Concent 35.8 G/DL (32.0-36.0) Red Cell Distribution Width 10.7 % (11.6-14.8) L Platelet Count 168 K/UL (150-450) Mean Platelet Volume 7.0 FL (6.5-10.1) Neutrophils (%) (Auto) 67.9 % (45.0-75.0) Lymphocytes (%) (Auto) 21.2 % (20.0-45.0) Monocytes (%) (Auto) 7.9 % (1.0-10.0) Eosinophils (%) (Auto) 2.2 % (0.0-3.0) Basophils (%) (Auto) 0.8 % (0.0-2.0) Sodium Level 140 MMOL/L (136-145) Potassium Level 3.9 MMOL/L (3.5-5.1) Chloride Level 103 MMOL/L (98-107) Carbon Dioxide Level 28 MMOL/L (21-32) Anion Gap 9 mmol/L (5-15) Blood Urea Nitrogen 8 mg/dL (7-18) Creatinine 0.8 MG/DL (0.55-1.30) Estimat Glomerular Filtration Rate > 60 mL/min (>60) Glucose Level 71 MG/DL (74-106) L Calcium Level 8.7 MG/DL (8.5-10.1) Total Bilirubin 1.2 MG/DL (0.2-1.0) H Direct Bilirubin 0.3 MG/DL (0.0-0.3) Aspartate Amino Transf (AST/SGOT) 18 U/L (15-37) Alanine Aminotransferase (ALT/SGPT) 33 U/L (12-78) Alkaline Phosphatase 36 U/L (46-116) L Total Protein 7.1 G/DL (6.4-8.2) Albumin 3.4 G/DL (3.4-5.0) Globulin 3.7 g/dL Albumin/Globulin Ratio 0.9 (1.0-2.7) L Amylase Level 182 U/L (25-115) H Lipase 653 U/L (73-393) H Current Medications Medications (Trade) Dose Ordered Sig/Shell Route PRN Reason Start Time Stop Time Status Last Admin Dose Admin Acetaminophen (Tylenol) 650 mg Q4H PRN ORAL Temp >100 07/03/19 23:15 08/02/19 23:14 07/05/19 21:11 Morphine Sulfate (Morphine Sulfate) 4 mg Q4H PRN IVP Severe Pain (Pain Scale 7-10) 07/03/19 23:15 07/10/19 23:14 07/06/19 11:00 Ondansetron HCl (Zofran) 4 mg Q6H PRN IVP Nausea & Vomiting 07/03/19 23:15 08/02/19 23:14 07/06/19 10:59 Sodium Chloride 1,000 ml @ 150 mls/hr Q6H40M IV 07/04/19 10:30 08/03/19 10:29 07/06/19 10:59 Brett Drummond MD July 06, 2019 12:46
--- NOTE | 2019-07-06 13:59 | Surgery Progress Note ---
Surgery Progress Note Subjective Symptoms: improved, tolerating diet, voiding well, passing flatus, pain decreased Additional Comments states he feels better today tolerating diet ambulatory no n/v/f/c mild abd cramping but improved labs improved Objective Last 24 Hour Vital Signs Date Time Temp Pulse Resp B/P (MAP) Pulse Ox O2 Delivery O2 Flow Rate FiO2 07/06/19 12:00 99.8 97 18 129/75 (93) 95 07/06/19 08:00 99.5 88 18 135/76 (95) 93 07/06/19 04:00 99.5 79 17 138/82 (100) 95 07/06/19 00:00 98.8 76 18 133/85 (101) 96 07/05/19 21:41 100.1 07/05/19 21:00 Room Air 07/05/19 20:00 100.8 83 17 129/83 (98) 94 07/05/19 16:00 99.1 82 16 130/74 (92) 95 I&O Intake and Output 07/05/19 07/06/19 19:00 07:00 Intake Total 2150 ml 900 ml Balance 2150 ml 900 ml Intake Oral 500 ml IV Total 1650 ml 900 ml # Voids 2 Cardiovascular: RSR Respiratory: clear Abdomen: soft, non-tender, present bowel sounds Extremities: no edema, no tenderness, no cyanosis Laboratory Tests Test 07/06/19 05:10 White Blood Count 10.1 K/UL (4.8-10.8) Red Blood Count 4.54 M/UL (4.70-6.10) L Hemoglobin 13.4 G/DL (14.2-18.0) L Hematocrit 37.5 % (42.0-52.0) L Mean Corpuscular Volume 83 FL (80-99) Mean Corpuscular Hemoglobin 29.5 PG (27.0-31.0) Mean Corpuscular Hemoglobin Concent 35.8 G/DL (32.0-36.0) Red Cell Distribution Width 10.7 % (11.6-14.8) L Platelet Count 168 K/UL (150-450) Mean Platelet Volume 7.0 FL (6.5-10.1) Neutrophils (%) (Auto) 67.9 % (45.0-75.0) Lymphocytes (%) (Auto) 21.2 % (20.0-45.0) Monocytes (%) (Auto) 7.9 % (1.0-10.0) Eosinophils (%) (Auto) 2.2 % (0.0-3.0) Basophils (%) (Auto) 0.8 % (0.0-2.0) Sodium Level 140 MMOL/L (136-145) Potassium Level 3.9 MMOL/L (3.5-5.1) Chloride Level 103 MMOL/L (98-107) Carbon Dioxide Level 28 MMOL/L (21-32) Anion Gap 9 mmol/L (5-15) Blood Urea Nitrogen 8 mg/dL (7-18) Creatinine 0.8 MG/DL (0.55-1.30) Estimat Glomerular Filtration Rate > 60 mL/min (>60) Glucose Level 71 MG/DL (74-106) L Calcium Level 8.7 MG/DL (8.5-10.1) Total Bilirubin 1.2 MG/DL (0.2-1.0) H Direct Bilirubin 0.3 MG/DL (0.0-0.3) Aspartate Amino Transf (AST/SGOT) 18 U/L (15-37) Alanine Aminotransferase (ALT/SGPT) 33 U/L (12-78) Alkaline Phosphatase 36 U/L (46-116) L Total Protein 7.1 G/DL (6.4-8.2) Albumin 3.4 G/DL (3.4-5.0) Globulin 3.7 g/dL Albumin/Globulin Ratio 0.9 (1.0-2.7) L Amylase Level 182 U/L (25-115) H Lipase 653 U/L (73-393) H Plan Problems: (1) Pancreatitis Assessment & Plan: 28 year old male with acute pancreatitis not etoh induced. not gallstones as hx of lap kaia similar prior events etiology still under workup possible idiopathic / autoimmune pain still lip >2k on admission npo iv fluids iv abx will follow with clinical exam pain control labs improving d/c planning thank you ABDOMEN: Liver: Mild fatty liver. Gallbladder and bile ducts: Cholecystectomy. Pancreas: Pancreatitis with pancreatic ascites. No pseudocyst. Spleen: Unremarkable. Adrenals: Unremarkable. Kidneys and ureters: Unremarkable. No hydronephrosis. Stomach and bowel: Reactive changes in the stomach and duodenum secondary to the pancreatitis PELVIS: Appendix: No findings to suggest acute appendicitis. Bladder: Unremarkable. Reproductive: Unremarkable. ABDOMEN and PELVIS: Intraperitoneal space: See above. Bones/joints: No acute fracture. Soft tissues: Unremarkable. Vasculature: Unremarkable. No abdominal aortic aneurysm. Lymph nodes: No enlarged lymph nodes. IMPRESSION: Pancreatitis with pancreatic ascites. No pseudocyst. Heber Rodriguez July 06, 2019 13:59
--- NOTE | 2019-07-06 15:32 | NUR ---
*-* INSURANCE *-* ALL AVAILABLE CLINICALS HAVE BEEN FAXED TO: Ref#[id number] #[phone] fax#[phone]
--- NOTE | 2019-07-06 16:13 | NUR ---
CASE MANAGEMENT: REVIEW 07/05/19 SI:PANCREATITIS WITH PANCREATIC ASCITES 100.8 83 17 129/83 94% ON RA FAHAD 502 LIPASE >2000 IS:IV NS @150ML/HR IV ZOFRAN Q6HR/PRN IV MORPHINE SULFATE Q4HR/PRN TYLENOL PO Q4HR/PRN \: 3E MED SURG UNIT DCP: HOME WHEN STABLE PLAN: START ON CLEAR LIQ DIET CONTROL PAIN REPEAT LABS AM LABS MONITOR FOR FEVERS CASE MANAGEMENT: REVIEW 07/06/19 SI:PANCREATITIS WITH PANCREATIC ASCITES 99.8 97 18 129/75 95% ON RA FAHAD 182 LIPASE 653 IS:IV NS @150ML/HR IV ZOFRAN Q6HR/PRN IV MORPHINE SULFATE Q4HR/PRN TYLENOL PO Q4HR/PRN \: 3E MED SURG UNIT DCP: HOME WHEN STABLE PLAN: START ON FULL LIQ DIET CONTROL PAIN REPEAT LABS AM LABS MONITOR FOR FEVERS
--- NOTE | 2019-07-06 16:38 | General Progress Note ---
Assessment/Plan Problem List: (1) Palpitations (2) Palpitations ICD Codes: R00.2 - Palpitations SNOMED: 82000008 (3) Pancreatitis ICD Codes: K85.90 - Acute pancreatitis without necrosis or infection, unspecified SNOMED: 91007592 Qualifiers: Qualified Codes: K85.80 - Other acute pancreatitis without necrosis or infection Assessment/Plan: pancreatitis improving decrease in lipase diet per gi dr Subjective ROS Limited/Unobtainable: Yes Allergies: Coded Allergies: No Known Allergies (Unverified , 09/20/12) Objective Last 24 Hour Vital Signs Date Time Temp Pulse Resp B/P (MAP) Pulse Ox O2 Delivery O2 Flow Rate FiO2 07/06/19 12:00 99.8 97 18 129/75 (93) 95 07/06/19 08:00 99.5 88 18 135/76 (95) 93 07/06/19 04:00 99.5 79 17 138/82 (100) 95 07/06/19 00:00 98.8 76 18 133/85 (101) 96 07/05/19 21:41 100.1 07/05/19 21:00 Room Air 07/05/19 20:00 100.8 83 17 129/83 (98) 94 Intake and Output 07/05/19 07/06/19 18:59 06:59 Intake Total 2300 ml 900 ml Balance 2300 ml 900 ml Intake Oral 500 ml IV Total 1800 ml 900 ml # Voids 2 Laboratory Tests 07/06/19 05:10: White Blood Count 10.1, Red Blood Count 4.54L, Hemoglobin 13.4L, Hematocrit 37.5L, Mean Corpuscular Volume 83, Mean Corpuscular Hemoglobin 29.5, Mean Corpuscular Hemoglobin Concent 35.8, Red Cell Distribution Width 10.7L, Platelet Count 168, Mean Platelet Volume 7.0, Neutrophils (%) (Auto) 67.9, Lymphocytes (%) (Auto) 21.2, Monocytes (%) (Auto) 7.9, Eosinophils (%) (Auto) 2.2, Basophils (%) (Auto) 0.8, Sodium Level 140, Potassium Level 3.9, Chloride Level 103, Carbon Dioxide Level 28, Anion Gap 9, Blood Urea Nitrogen 8, Creatinine 0.8, Estimat Glomerular Filtration Rate > 60, Glucose Level 71L, Calcium Level 8.7, Total Bilirubin 1.2H, Direct Bilirubin 0.3, Aspartate Amino Transf (AST/SGOT) 18, Alanine Aminotransferase (ALT/SGPT) 33, Alkaline Phosphatase 36L, Total Protein 7.1, Albumin 3.4, Globulin 3.7, Albumin/Globulin Ratio 0.9L, Amylase Level 182H, Lipase 653H Height (Feet): 5 Height (Inches): 11.00 Weight (Pounds): 270 Tonya Jackson MD July 06, 2019 16:38
[2019-07-06 17:14] VITALS: BP 128/84
--- NOTE | 2019-07-06 19:25 | NUR ---
HAND-OFF: Report given to Alyson VARGAS, rounds made.
--- NOTE | 2019-07-06 19:56 | NUR ---
NURSE NOTES: Received report from Ene VARGAS. Patient is awake and oriented, reporting mild chest pain rated 2/10 with mild numbness/tingling radiating down the left arm. Patient reports he feels anxious because he has been taking blood pressure medications since 2012 and they have not been continued while in the hospital. VS are stable. Dr. Jackson was called and voicemail left regarding patient condition.
[2019-07-06 20:00] VITALS: BP 119/78
--- NOTE | 2019-07-06 20:00 | NUR ---
NURSE NOTES: Receive a call from Dr. Jackson. Dr. Jackson says that Dr. Whatley is a control technician and he already contacted him. Receive orders to Consult to Dr. Whatley, to get sstat EKG, Troponin and call to Dr. Ayala for Troponin result. Read back orders. Order noted and carried out. Relay orders to ALICIA Shields and CN.
--- NOTE | 2019-07-06 20:11 | NUR ---
NURSE NOTES: Called lab and notified regarding STAT EKG order.
--- NOTE | 2019-07-06 21:33 | NUR ---
NURSE NOTES: Called Dr. Ayala and reported EKG and troponin results via voicemail. EKG showed normal sinus rhythm, troponin negative. Patient now reports he is feeling better and is no longer having chest pain, patient reports the numbness in his left arm is subsiding.
--- NOTE | 2019-07-06 22:15 | NUR ---
NURSE NOTES: Received callback from Dr. Ayala. New orders received, read back and entered. MD is aware of patient's EKG and troponin results.
[2019-07-07] VITALS: BP 127/78
[2019-07-07] MEDS: Morphine Sulfate 4mg/ml Inj (IV USE ONLY) IVP PRN ×3 (01:04→14:02)
[2019-07-07 04:00] VITALS: BP 137/76
--- NOTE | 2019-07-07 04:38 | NUR ---
NURSE NOTES: Called RT for repeat EKG.
--- NOTE | 2019-07-07 05:12 | NUR ---
NURSE NOTES: Follow up EKG showed normal sinus rhythm.
[2019-07-07 06:26] LABS: BASOPHILS % (AUTO) 0.6 % (0.0-2.0); EOSINOPHILS % (AUTO) 2.9 % (0.0-3.0); HEMATOCRIT 37.3 % (42.0-52.0); HEMOGLOBIN 13.2 G/DL (14.2-18.0); LYMPHOCYTES % (AUTO) 24.6 % (20.0-45.0); MEAN CORPUSCULAR VOLUME 82 FL (80-99); MONOCYTES % (AUTO) 8.9 % (1.0-10.0); NEUTROPHILS % (AUTO) 62.9 % (45.0-75.0); PLATELET COUNT 186 K/UL (150-450); RED BLOOD COUNT 4.53 M/UL (4.70-6.10); RED CELL DISTRIBUTION WIDTH 10.8 % (11.6-14.8); WHITE BLOOD COUNT 9.7 K/UL (4.8-10.8)
[2019-07-07 07:09] LABS: ALANINE AMINOTRANSFERASE 28 U/L (12-78); ALBUMIN 3.4 G/DL (3.4-5.0); ALBUMIN/GLOBULIN RATIO 0.9 (1.0-2.7); ALKALINE PHOSPHATASE 33 U/L (46-116); AMYLASE 92 U/L (25-115); ANION GAP 8 mmol/L (5-15); ASPARTATE AMINO TRANSFERASE 13 U/L (15-37); BILIRUBIN,TOTAL 0.8 MG/DL (0.2-1.0); BLOOD UREA NITROGEN 7 mg/dL (7-18); CALCIUM 8.7 MG/DL (8.5-10.1); CARBON DIOXIDE 29 MMOL/L (21-32); CHLORIDE 103 MMOL/L (98-107); CREATININE 0.8 MG/DL (0.55-1.30); POTASSIUM 3.6 MMOL/L (3.5-5.1); SODIUM 140 MMOL/L (136-145)
--- NOTE | 2019-07-07 07:32 | NUR ---
NURSE NOTES: Report received from Alyson VARGAS. Patient AOx4 calm, denies chest pain, SOB. Left forearm numbness mild. IV 0.45 NS at 150 ml/hr infusing to RAC, site asymptomatic. Denies NV. Tolerating full liquids. Call light in reach, bed in lowest position, will continue to monitor.
--- NOTE | 2019-07-07 07:38 | NUR ---
HAND-OFF: Report given to Ene VARGAS.
[2019-07-07 08:00] VITALS: BP 141/81
[2019-07-07] MEDS: Lisinopril 20mg tab ORAL SCH (09:17)
[2019-07-07] MEDS: Aspirin EC 81mg tab ORAL SCH (09:17)
[2019-07-07 12:00] VITALS: BP 127/67
--- NOTE | 2019-07-07 15:06 | NUR ---
NURSE NOTES: Patient reports he had x1 normal formed BM and x1 diarrheal stool last night, then x3 diarrheal stool today so far. Mark notified, order received for stool for CDiff. Will update patient.
--- NOTE | 2019-07-07 15:44 | Cardiac Electrophysiology PN ---
Subjective Subjective [id number] Objective Last 24 Hour Vital Signs Date Time Temp Pulse Resp B/P (MAP) Pulse Ox O2 Delivery O2 Flow Rate FiO2 07/07/19 12:00 98.8 75 20 127/67 (87) 98 07/07/19 09:17 141/81 07/07/19 09:00 Room Air 07/07/19 08:00 98.4 87 18 141/81 (101) 94 07/07/19 04:00 98.6 96 18 137/76 (96) 98 07/07/19 00:00 99.1 79 16 127/78 (94) 95 07/06/19 21:00 Room Air 07/06/19 20:00 99.7 92 18 119/78 (92) 97 07/06/19 17:14 99.5 86 18 128/84 (99) 95 Intake and Output 07/06/19 07/07/19 19:00 07:00 Intake Total 2700 ml 1650 ml Balance 2700 ml 1650 ml Intake Oral 1200 ml IV Total 1500 ml 1650 ml # Voids 3 1 Laboratory Tests Test 07/06/19 20:25 07/07/19 05:35 Troponin I 0.000 ng/mL (0.000-0.056) 0.000 ng/mL (0.000-0.056) White Blood Count 9.7 K/UL (4.8-10.8) Red Blood Count 4.53 M/UL (4.70-6.10) L Hemoglobin 13.2 G/DL (14.2-18.0) L Hematocrit 37.3 % (42.0-52.0) L Mean Corpuscular Volume 82 FL (80-99) Mean Corpuscular Hemoglobin 29.1 PG (27.0-31.0) Mean Corpuscular Hemoglobin Concent 35.4 G/DL (32.0-36.0) Red Cell Distribution Width 10.8 % (11.6-14.8) L Platelet Count 186 K/UL (150-450) Mean Platelet Volume 7.2 FL (6.5-10.1) Neutrophils (%) (Auto) 62.9 % (45.0-75.0) Lymphocytes (%) (Auto) 24.6 % (20.0-45.0) Monocytes (%) (Auto) 8.9 % (1.0-10.0) Eosinophils (%) (Auto) 2.9 % (0.0-3.0) Basophils (%) (Auto) 0.6 % (0.0-2.0) Sodium Level 140 MMOL/L (136-145) Potassium Level 3.6 MMOL/L (3.5-5.1) Chloride Level 103 MMOL/L (98-107) Carbon Dioxide Level 29 MMOL/L (21-32) Anion Gap 8 mmol/L (5-15) Blood Urea Nitrogen 7 mg/dL (7-18) Creatinine 0.8 MG/DL (0.55-1.30) Estimat Glomerular Filtration Rate > 60 mL/min (>60) Glucose Level 85 MG/DL (74-106) Calcium Level 8.7 MG/DL (8.5-10.1) Total Bilirubin 0.8 MG/DL (0.2-1.0) Aspartate Amino Transf (AST/SGOT) 13 U/L (15-37) L Alanine Aminotransferase (ALT/SGPT) 28 U/L (12-78) Alkaline Phosphatase 33 U/L (46-116) L Total Protein 7.2 G/DL (6.4-8.2) Albumin 3.4 G/DL (3.4-5.0) Globulin 3.8 g/dL Albumin/Globulin Ratio 0.9 (1.0-2.7) L Amylase Level 92 U/L (25-115) Lipase 411 U/L (73-393) Brenton Barrientos MD July 07, 2019 15:44
[2019-07-07 16:03] VITALS: BP 115/60
--- NOTE | 2019-07-07 16:05 | GI Progress Note ---
Assessment/Plan Problems: (1) Pancreatitis ICD Codes: K85.90 - Acute pancreatitis without necrosis or infection, unspecified SNOMED: 57426354 Qualifiers: Qualified Codes: K85.80 - Other acute pancreatitis without necrosis or infection Status: stable Status Narrative Discussed with Dr. Grove. Assessment/Plan pancreatitis unknown etiology no utox sent post kaia min ETOH lower IVF to 75cc/hr, dc if patient able to tolerate PO greater than 500cc labs improving repeat labs in am pain control advance diet to soft diet will fu The patient was seen and examined at bedside and all new and available data was reviewed in the patients chart. I agree with the above findings, impression and plan. (Patient seen earlier today. Signature stamp does not reflect patient encounter time.). - Nixon Grove MD Subjective Gastrointestinal/Abdominal: Reports: abdominal pain - improved, diarrhea; Denies: no symptoms, abdomen distended, black stools, tarry stools, blood in stool, constipated, difficulty swallowing, nausea, poor appetite, poor fluid intake, rectal bleeding, vomiting, other Objective Last 24 Hour Vital Signs Date Time Temp Pulse Resp B/P (MAP) Pulse Ox O2 Delivery O2 Flow Rate FiO2 07/07/19 12:00 98.8 75 20 127/67 (87) 98 07/07/19 09:17 141/81 07/07/19 09:00 Room Air 07/07/19 08:00 98.4 87 18 141/81 (101) 94 07/07/19 04:00 98.6 96 18 137/76 (96) 98 07/07/19 00:00 99.1 79 16 127/78 (94) 95 07/06/19 21:00 Room Air 07/06/19 20:00 99.7 92 18 119/78 (92) 97 07/06/19 17:14 99.5 86 18 128/84 (99) 95 Intake and Output 07/06/19 07/07/19 19:00 07:00 Intake Total 2700 ml 1650 ml Balance 2700 ml 1650 ml Intake Oral 1200 ml IV Total 1500 ml 1650 ml # Voids 3 1 Laboratory Tests Test 07/06/19 20:25 07/07/19 05:35 Troponin I 0.000 ng/mL (0.000-0.056) 0.000 ng/mL (0.000-0.056) White Blood Count 9.7 K/UL (4.8-10.8) Red Blood Count 4.53 M/UL (4.70-6.10) L Hemoglobin 13.2 G/DL (14.2-18.0) L Hematocrit 37.3 % (42.0-52.0) L Mean Corpuscular Volume 82 FL (80-99) Mean Corpuscular Hemoglobin 29.1 PG (27.0-31.0) Mean Corpuscular Hemoglobin Concent 35.4 G/DL (32.0-36.0) Red Cell Distribution Width 10.8 % (11.6-14.8) L Platelet Count 186 K/UL (150-450) Mean Platelet Volume 7.2 FL (6.5-10.1) Neutrophils (%) (Auto) 62.9 % (45.0-75.0) Lymphocytes (%) (Auto) 24.6 % (20.0-45.0) Monocytes (%) (Auto) 8.9 % (1.0-10.0) Eosinophils (%) (Auto) 2.9 % (0.0-3.0) Basophils (%) (Auto) 0.6 % (0.0-2.0) Sodium Level 140 MMOL/L (136-145) Potassium Level 3.6 MMOL/L (3.5-5.1) Chloride Level 103 MMOL/L (98-107) Carbon Dioxide Level 29 MMOL/L (21-32) Anion Gap 8 mmol/L (5-15) Blood Urea Nitrogen 7 mg/dL (7-18) Creatinine 0.8 MG/DL (0.55-1.30) Estimat Glomerular Filtration Rate > 60 mL/min (>60) Glucose Level 85 MG/DL (74-106) Calcium Level 8.7 MG/DL (8.5-10.1) Total Bilirubin 0.8 MG/DL (0.2-1.0) Aspartate Amino Transf (AST/SGOT) 13 U/L (15-37) L Alanine Aminotransferase (ALT/SGPT) 28 U/L (12-78) Alkaline Phosphatase 33 U/L (46-116) L Total Protein 7.2 G/DL (6.4-8.2) Albumin 3.4 G/DL (3.4-5.0) Globulin 3.8 g/dL Albumin/Globulin Ratio 0.9 (1.0-2.7) L Amylase Level 92 U/L (25-115) Lipase 411 U/L (73-393) H Height (Feet): 5 Height (Inches): 11.00 Weight (Pounds): 270 General Appearance: WD/WN, no apparent distress, alert Cardiovascular: normal rate Respiratory/Chest: normal breath sounds, no respiratory distress Abdominal Exam: normal bowel sounds, non tender, soft Extremities: normal range of motion, non-tender Maria Antonia Barragan NP July 07, 2019 16:05
--- NOTE | 2019-07-07 16:39 | General Progress Note ---
Assessment/Plan Problem List: (1) Palpitations (2) Palpitations ICD Codes: R00.2 - Palpitations SNOMED: 72990790 (3) Pancreatitis ICD Codes: K85.90 - Acute pancreatitis without necrosis or infection, unspecified SNOMED: 83573922 Qualifiers: Qualified Codes: K85.80 - Other acute pancreatitis without necrosis or infection Status: stable Assessment/Plan: pancreatitis improving afebrile decrease in abdominal pain dc planning Subjective ROS Limited/Unobtainable: Yes Allergies: Coded Allergies: No Known Allergies (Unverified , 09/20/12) Objective Last 24 Hour Vital Signs Date Time Temp Pulse Resp B/P (MAP) Pulse Ox O2 Delivery O2 Flow Rate FiO2 07/07/19 16:03 98.9 68 20 115/60 (78) 99 07/07/19 12:00 98.8 75 20 127/67 (87) 98 07/07/19 09:17 141/81 07/07/19 09:00 Room Air 07/07/19 08:00 98.4 87 18 141/81 (101) 94 07/07/19 04:00 98.6 96 18 137/76 (96) 98 07/07/19 00:00 99.1 79 16 127/78 (94) 95 07/06/19 21:00 Room Air 07/06/19 20:00 99.7 92 18 119/78 (92) 97 07/06/19 17:14 99.5 86 18 128/84 (99) 95 Intake and Output 07/06/19 07/07/19 19:00 07:00 Intake Total 2700 ml 1650 ml Balance 2700 ml 1650 ml Intake Oral 1200 ml IV Total 1500 ml 1650 ml # Voids 3 1 Laboratory Tests 07/06/19 20:25: Troponin I 0.000 07/07/19 05:35: Troponin I 0.000, White Blood Count 9.7, Red Blood Count 4.53L, Hemoglobin 13.2L , Hematocrit 37.3L, Mean Corpuscular Volume 82, Mean Corpuscular Hemoglobin 29.1 , Mean Corpuscular Hemoglobin Concent 35.4, Red Cell Distribution Width 10.8L, Platelet Count 186, Mean Platelet Volume 7.2, Neutrophils (%) (Auto) 62.9, Lymphocytes (%) (Auto) 24.6, Monocytes (%) (Auto) 8.9, Eosinophils (%) (Auto) 2.9, Basophils (%) (Auto) 0.6, Sodium Level 140, Potassium Level 3.6, Chloride Level 103, Carbon Dioxide Level 29, Anion Gap 8, Blood Urea Nitrogen 7, Creatinine 0.8, Estimat Glomerular Filtration Rate > 60, Glucose Level 85, Calcium Level 8.7, Total Bilirubin 0.8, Aspartate Amino Transf (AST/SGOT) 13L, Alanine Aminotransferase (ALT/SGPT) 28, Alkaline Phosphatase 33L, Total Protein 7.2, Albumin 3.4, Globulin 3.8, Albumin/Globulin Ratio 0.9L, Amylase Level 92, Lipase 411H Height (Feet): 5 Height (Inches): 11.00 Weight (Pounds): 270 Tonya Jackson MD July 07, 2019 16:39
--- NOTE | 2019-07-07 18:18 | Surgery Progress Note ---
Surgery Progress Note Subjective Additional Comments doing better labs noted exam benign tolerating diet ambulatory no complaints Objective Last 24 Hour Vital Signs Date Time Temp Pulse Resp B/P (MAP) Pulse Ox O2 Delivery O2 Flow Rate FiO2 07/07/19 16:03 98.9 68 20 115/60 (78) 99 07/07/19 12:00 98.8 75 20 127/67 (87) 98 07/07/19 09:17 141/81 07/07/19 09:00 Room Air 07/07/19 08:00 98.4 87 18 141/81 (101) 94 07/07/19 04:00 98.6 96 18 137/76 (96) 98 07/07/19 00:00 99.1 79 16 127/78 (94) 95 07/06/19 21:00 Room Air 07/06/19 20:00 99.7 92 18 119/78 (92) 97 I&O Intake and Output 07/06/19 07/07/19 19:00 07:00 Intake Total 2700 ml 1650 ml Balance 2700 ml 1650 ml Intake Oral 1200 ml IV Total 1500 ml 1650 ml # Voids 3 1 Cardiovascular: RSR Respiratory: clear Abdomen: soft, flat, non-tender, present bowel sounds Extremities: no edema, no tenderness, no cyanosis Laboratory Tests Test 07/06/19 20:25 07/07/19 05:35 Troponin I 0.000 ng/mL (0.000-0.056) 0.000 ng/mL (0.000-0.056) White Blood Count 9.7 K/UL (4.8-10.8) Red Blood Count 4.53 M/UL (4.70-6.10) L Hemoglobin 13.2 G/DL (14.2-18.0) L Hematocrit 37.3 % (42.0-52.0) L Mean Corpuscular Volume 82 FL (80-99) Mean Corpuscular Hemoglobin 29.1 PG (27.0-31.0) Mean Corpuscular Hemoglobin Concent 35.4 G/DL (32.0-36.0) Red Cell Distribution Width 10.8 % (11.6-14.8) L Platelet Count 186 K/UL (150-450) Mean Platelet Volume 7.2 FL (6.5-10.1) Neutrophils (%) (Auto) 62.9 % (45.0-75.0) Lymphocytes (%) (Auto) 24.6 % (20.0-45.0) Monocytes (%) (Auto) 8.9 % (1.0-10.0) Eosinophils (%) (Auto) 2.9 % (0.0-3.0) Basophils (%) (Auto) 0.6 % (0.0-2.0) Sodium Level 140 MMOL/L (136-145) Potassium Level 3.6 MMOL/L (3.5-5.1) Chloride Level 103 MMOL/L (98-107) Carbon Dioxide Level 29 MMOL/L (21-32) Anion Gap 8 mmol/L (5-15) Blood Urea Nitrogen 7 mg/dL (7-18) Creatinine 0.8 MG/DL (0.55-1.30) Estimat Glomerular Filtration Rate > 60 mL/min (>60) Glucose Level 85 MG/DL (74-106) Calcium Level 8.7 MG/DL (8.5-10.1) Total Bilirubin 0.8 MG/DL (0.2-1.0) Aspartate Amino Transf (AST/SGOT) 13 U/L (15-37) L Alanine Aminotransferase (ALT/SGPT) 28 U/L (12-78) Alkaline Phosphatase 33 U/L (46-116) L Total Protein 7.2 G/DL (6.4-8.2) Albumin 3.4 G/DL (3.4-5.0) Globulin 3.8 g/dL Albumin/Globulin Ratio 0.9 (1.0-2.7) L Amylase Level 92 U/L (25-115) Lipase 411 U/L (73-393) H Plan Problems: (1) Pancreatitis Assessment & Plan: 28 year old male with acute pancreatitis not etoh induced. not gallstones as hx of lap kaia similar prior events etiology still under workup possible idiopathic / autoimmune pain still lip >2k on admission npo iv fluids iv abx will follow with clinical exam pain control labs improving d/c planning thank you ABDOMEN: Liver: Mild fatty liver. Gallbladder and bile ducts: Cholecystectomy. Pancreas: Pancreatitis with pancreatic ascites. No pseudocyst. Spleen: Unremarkable. Adrenals: Unremarkable. Kidneys and ureters: Unremarkable. No hydronephrosis. Stomach and bowel: Reactive changes in the stomach and duodenum secondary to the pancreatitis PELVIS: Appendix: No findings to suggest acute appendicitis. Bladder: Unremarkable. Reproductive: Unremarkable. ABDOMEN and PELVIS: Intraperitoneal space: See above. Bones/joints: No acute fracture. Soft tissues: Unremarkable. Vasculature: Unremarkable. No abdominal aortic aneurysm. Lymph nodes: No enlarged lymph nodes. IMPRESSION: Pancreatitis with pancreatic ascites. No pseudocyst. Heber Rodriguez July 07, 2019 18:18
[2019-07-07 20:00] VITALS: BP 122/73
--- NOTE | 2019-07-07 20:05 | NUR ---
HAND-OFF: Report given to Karlene RN, rounds made. Patient in restroom.
--- NOTE | 2019-07-07 20:23 | NUR ---
NURSE NOTES: Received report form Ene RN , rounds made , pt a/ox 4 ,breaths regular unlabored on RA, pt stable, denies any pain, i.v site on R AC 20G, with iv fluids running , patent and asymptomatic , bed in low locked position , call light with in reach , will continue with plan of care
[2019-07-07] MEDS ORDERED: 1/2 NS 1000ml IV ONE ×2 (21:27→21:28)
--- NOTE | 2019-07-07 23:45 | Consultation ---
DATE OF CONSULTATION: 07/07/2019 REFERRING PHYSICIAN: Tonya Jackson M.D. REASON FOR CONSULTATION: Chest pain. HISTORY OF PRESENT ILLNESS: The patient is a 28-year-old gentleman who was admitted with abdominal pain, nausea, vomiting, and was found to have acute pancreatitis. The patient has history of pancreatitis 4 years ago and occasionally continues to drink alcohol. The patient complained of chest pain with radiation to the left arm that quickly resolved. Cardiology consultation was obtained for further evaluation. The patient also says that he occasionally gets palpitation. REVIEW OF SYSTEMS: Negative other than what was mentioned in history of present illness. PAST MEDICAL HISTORY: As mentioned above. FAMILY HISTORY: Noncontributory. SOCIAL HISTORY: He lives at home. Does not smoke. On occasion drinks alcohol. PHYSICAL EXAMINATION: VITAL SIGNS: Blood pressure of 120/67, pulse 75, respiratory rate 20, temperature 98.8. NECK: No JVD. LUNGS: Clear. CARDIOVASCULAR: Regular S1 and S2 with no gallop or murmur. ABDOMEN: Soft. EXTREMITIES: No pitting edema. LABS: White count 9.7, hemoglobin 13, hematocrit 37, and platelet count of 186,000. Sodium is 140, potassium 3.6, BUN of 7, creatinine 0.8. Troponin negative x2. ASSESSMENT AND PLAN: 1. Chest pain. The pain is atypical. The patient will be ruled out for myocardial infarction. We will get EKG and echocardiogram for further evaluation. 2. Acute pancreatitis with lipase level of more than 2000 and amylase of 502. The amylase has come down to 92 and lipase down to 411. 3. Hypertension, on lisinopril 20 mg daily. Thank you very much for allowing me to participate in the care of this patient. Please do not hesitate to contact me for any questions regarding my evaluation. Brenton Ayala M.D. DR: AIMEE JOB#: [id number] CC:
[2019-07-08] VITALS: BP 129/60
[2019-07-08 04:00] VITALS: BP 118/66
[2019-07-08 06:43] LABS: HEMOGLOBIN 13.2 G/DL (14.2-18.0); MEAN CORPUSCULAR VOLUME 82 FL (80-99); PLATELET COUNT 207 K/UL (150-450); RED CELL DISTRIBUTION WIDTH 11.2 % (11.6-14.8); WHITE BLOOD COUNT 8.1 K/UL (4.8-10.8)
[2019-07-08 06:54] LABS: ALANINE AMINOTRANSFERASE 22 U/L (12-78); ALBUMIN 3.2 G/DL (3.4-5.0); ALBUMIN/GLOBULIN RATIO 0.8 (1.0-2.7); ALKALINE PHOSPHATASE 37 U/L (46-116); AMYLASE 69 U/L (25-115); ANION GAP 7 mmol/L (5-15); ASPARTATE AMINO TRANSFERASE 12 U/L (15-37); BILIRUBIN,TOTAL 0.6 MG/DL (0.2-1.0); BLOOD UREA NITROGEN 8 mg/dL (7-18); CALCIUM 8.8 MG/DL (8.5-10.1); CARBON DIOXIDE 29 MMOL/L (21-32); CHLORIDE 106 MMOL/L (98-107); CREATININE 0.8 MG/DL (0.55-1.30); POTASSIUM 4.1 MMOL/L (3.5-5.1); SODIUM 142 MMOL/L (136-145)
--- NOTE | 2019-07-08 07:40 | NUR ---
HAND-OFF: Report given to Sil VARGAS, pt stable.
--- NOTE | 2019-07-08 07:47 | NUR ---
NURSE NOTES:REPORT GIVEN BY NIGHT RN(SOLO),BEDSIDE ROUNDS DONE,PT. AWAKE,A/OX4,ROOM AIR,IV SITE PATENT,ABDOMEN OBESE(CT SHOWS PANCREATITIS WITH PANCREATIC ASCITES),LAST BM:07/06,NO C/O PAIN.WILL CONTINUE CURRENT PLAN OF CARE.
[2019-07-08 08:00] VITALS: BP 153/91
[2019-07-08] MEDS: Lisinopril 20mg tab ORAL SCH (08:47)
[2019-07-08] MEDS: Aspirin EC 81mg tab ORAL SCH (08:48)
--- NOTE | 2019-07-08 09:00 | NUR ---
NURSE NOTES:WITH LOW GRADE TEMP FR.IRRIGATION INSTALLATION SPECIALIST.IS PROVIDED WITH INSTRUCTIONS,WITH GOOD RETURNED DEMO.
--- NOTE | 2019-07-08 10:15 | NUR ---
RD ASSESSMENT & RECOMMENDATIONS SEE CARE ACTIVITY FOR COMPLETE ASSESSMENT DAILY ESTIMATED NEEDS: Needs based on Pancreatitis 89kg 20-25 kcals/kg 8862-2440 total kcals 1-1.5 g protein/kg 89-134 g total protein 25-30 mL/kg 1782-4914 total fluid mLs NUTRITION DIAGNOSIS: Decreased fat needs r/t acute pancreatitis as evidenced by pt adm w/ abdominal pain, N,V, elev Lipase (>2000) and amylase, now trending down. (CURRENT DIET: Soft) PO DIET RECOMMENDATIONS--->>> Low Na/ Low Fat diet --- ADDITIONAL RECOMMENDATIONS: 1) Obtain a standing weight as able 2) Monitor BG
[2019-07-08 11:50] VITALS: BP 112/64
--- NOTE | 2019-07-08 11:52 | GI Progress Note ---
Assessment/Plan Problems: (1) Pancreatitis ICD Codes: K85.90 - Acute pancreatitis without necrosis or infection, unspecified SNOMED: [id number] Qualifiers: Qualified Codes: K85.80 - Other acute pancreatitis without necrosis or infection Status: stable Status Narrative Discussed with Dr. Grove. Assessment/Plan pancreatitis unknown etiology no utox sent post kaia min ETOH labs improving repeat labs in am pain control advance diet to soft diet, tolerating okay for DC per GI standpoint The patient was seen and examined at bedside and all new and available data was reviewed in the patients chart. I agree with the above findings, impression and plan. (Patient seen earlier today. Signature stamp does not reflect patient encounter time.). - Nixon Grove MD Subjective Gastrointestinal/Abdominal: Reports: abdominal pain - improved; Denies: no symptoms, abdomen distended, black stools, tarry stools, blood in stool, constipated, diarrhea, difficulty swallowing, nausea, poor appetite, poor fluid intake, rectal bleeding, vomiting, other Objective Last 24 Hour Vital Signs Date Time Temp Pulse Resp B/P (MAP) Pulse Ox O2 Delivery O2 Flow Rate FiO2 07/08/19 08:47 153/91 07/08/19 08:00 97.4 74 19 153/91 (111) 97 07/08/19 07:47 Room Air 07/08/19 04:00 97.8 61 18 118/66 (83) 98 07/08/19 00:00 98.6 61 18 129/60 (83) 96 07/07/19 22:14 99.4 07/07/19 20:00 100.6 83 20 122/73 (89) 96 07/07/19 18:59 Room Air 07/07/19 16:03 98.9 68 20 115/60 (78) 99 07/07/19 12:00 98.8 75 20 127/67 (87) 98 Intake and Output 07/07/19 07/08/19 19:00 07:00 Intake Total 2700 ml Balance 2700 ml Intake Oral 1500 ml IV Total 1200 ml # Voids 3 2 # Bowel Movements 8 Laboratory Tests Test 07/08/19 05:30 White Blood Count 8.1 K/UL (4.8-10.8) Red Blood Count 4.50 M/UL (4.70-6.10) L Hemoglobin 13.2 G/DL (14.2-18.0) L Hematocrit 37.0 % (42.0-52.0) L Mean Corpuscular Volume 82 FL (80-99) Mean Corpuscular Hemoglobin 29.4 PG (27.0-31.0) Mean Corpuscular Hemoglobin Concent 35.7 G/DL (32.0-36.0) Red Cell Distribution Width 11.2 % (11.6-14.8) L Platelet Count 207 K/UL (150-450) Mean Platelet Volume 6.4 FL (6.5-10.1) L Neutrophils (%) (Auto) % (45.0-75.0) Lymphocytes (%) (Auto) % (20.0-45.0) Monocytes (%) (Auto) % (1.0-10.0) Eosinophils (%) (Auto) % (0.0-3.0) Basophils (%) (Auto) % (0.0-2.0) Differential Total Cells Counted 100 Neutrophils % (Manual) 60 % (45-75) Lymphocytes % (Manual) 28 % (20-45) Monocytes % (Manual) 9 % (1-10) Eosinophils % (Manual) 3 % (0-3) Basophils % (Manual) 0 % (0-2) Band Neutrophils 0 % (0-8) Platelet Estimate Adequate Platelet Morphology Normal Red Blood Cell Morphology Normal Sodium Level 142 MMOL/L (136-145) Potassium Level 4.1 MMOL/L (3.5-5.1) Chloride Level 106 MMOL/L (98-107) Carbon Dioxide Level 29 MMOL/L (21-32) Anion Gap 7 mmol/L (5-15) Blood Urea Nitrogen 8 mg/dL (7-18) Creatinine 0.8 MG/DL (0.55-1.30) Estimat Glomerular Filtration Rate > 60 mL/min (>60) Glucose Level 94 MG/DL (74-106) Calcium Level 8.8 MG/DL (8.5-10.1) Total Bilirubin 0.6 MG/DL (0.2-1.0) Aspartate Amino Transf (AST/SGOT) 12 U/L (15-37) L Alanine Aminotransferase (ALT/SGPT) 22 U/L (12-78) Alkaline Phosphatase 37 U/L (46-116) L Total Protein 7.2 G/DL (6.4-8.2) Albumin 3.2 G/DL (3.4-5.0) L Globulin 4.0 g/dL Albumin/Globulin Ratio 0.8 (1.0-2.7) L Amylase Level 69 U/L (25-115) Lipase 454 U/L (73-393) H Height (Feet): 5 Height (Inches): 11.00 Weight (Pounds): 270 General Appearance: WD/WN, no apparent distress, alert Cardiovascular: normal rate Respiratory/Chest: normal breath sounds, no respiratory distress Abdominal Exam: normal bowel sounds, non tender, soft Extremities: normal range of motion, non-tender Maria Antonia Barragan NP July 08, 2019 11:52
--- NOTE | 2019-07-08 13:57 | General Progress Note ---
Assessment/Plan Assessment/Plan: (1) Abdominal pain (2) Pancreatitis Pt to be continued on Morphine D/w Dr. Gurrola and he concurred. Subjective Date patient seen: July 08, 2019 Time patient seen: 01:45 - pm Allergies: Coded Allergies: No Known Allergies (Unverified , 09/20/12) Subjective Constitutional: Reports: no symptoms HEENT: Reports: no symptoms Cardiovascular: Reports: no symptoms Respiratory: Reports: no symptoms Gastrointestinal/Abdominal: Reports: abdominal pain Genitourinary: Reports: no symptoms Neurologic/Psychiatric: Reports: no symptoms Endocrine: Reports: no symptoms Hematologic/Lymphatic: Reports: no symptoms Subjective Patient reports feeling much better and denies pain Looking forward to being discharged home as per envelope stuffer. Objective Last 24 Hour Vital Signs Date Time Temp Pulse Resp B/P (MAP) Pulse Ox O2 Delivery O2 Flow Rate FiO2 07/08/19 11:50 97.8 69 19 112/64 (80) 95 07/08/19 08:47 153/91 07/08/19 08:00 97.4 74 19 153/91 (111) 97 07/08/19 07:47 Room Air 07/08/19 04:00 97.8 61 18 118/66 (83) 98 07/08/19 00:00 98.6 61 18 129/60 (83) 96 07/07/19 22:14 99.4 07/07/19 20:00 100.6 83 20 122/73 (89) 96 07/07/19 18:59 Room Air 07/07/19 16:03 98.9 68 20 115/60 (78) 99 Intake and Output 07/07/19 07/08/19 19:00 07:00 Intake Total 2700 ml Balance 2700 ml Intake Oral 1500 ml IV Total 1200 ml # Voids 3 2 # Bowel Movements 8 Laboratory Tests 07/08/19 05:30: White Blood Count 8.1, Red Blood Count 4.50L, Hemoglobin 13.2L, Hematocrit 37.0L , Mean Corpuscular Volume 82, Mean Corpuscular Hemoglobin 29.4, Mean Corpuscular Hemoglobin Concent 35.7, Red Cell Distribution Width 11.2L, Platelet Count 207, Mean Platelet Volume 6.4L, Neutrophils (%) (Auto) , Lymphocytes (%) (Auto) , Monocytes (%) (Auto) , Eosinophils (%) (Auto) , Basophils (%) (Auto) , Differential Total Cells Counted 100, Neutrophils % ( Manual) 60, Lymphocytes % (Manual) 28, Monocytes % (Manual) 9, Eosinophils % ( Manual) 3, Basophils % (Manual) 0, Band Neutrophils 0, Platelet Estimate Adequate, Platelet Morphology Normal, Red Blood Cell Morphology Normal, Sodium Level 142, Potassium Level 4.1, Chloride Level 106, Carbon Dioxide Level 29, Anion Gap 7, Blood Urea Nitrogen 8, Creatinine 0.8, Estimat Glomerular Filtration Rate > 60, Glucose Level 94, Calcium Level 8.8, Total Bilirubin 0.6, Aspartate Amino Transf (AST/SGOT) 12L, Alanine Aminotransferase (ALT/SGPT) 22, Alkaline Phosphatase 37L, Total Protein 7.2, Albumin 3.2L, Globulin 4.0, Albumin /Globulin Ratio 0.8L, Amylase Level 69, Lipase 454H Height (Feet): 5 Height (Inches): 11.00 Weight (Pounds): 270 Objective General Appearance: no apparent distress, alert EENT: PERRL/EOMI, normal ENT inspection Neck: non-tender, normal alignment Cardiovascular: normal rate, regular rhythm Respiratory/Chest: lungs clear, normal breath sounds Abdomen: tender Extremities: non-tender Edema: no edema noted Generalized Neurologic: alert, oriented x 3 Skin: normal pigmentation Danie Orosco July 08, 2019 13:57
--- NOTE | 2019-07-08 14:35 | Infectious Diseases Prog Note ---
Assessment/Plan Assessment/Plan IMPRESSION: Fever, low grade Acute pancreatitis, Fatty liver, Hypertension. RECOMMENDATION: Observe off antibiotic. Agree with discharge Subjective ROS Limited/Unobtainable: Yes Constitutional: Reports: no symptoms Respiratory: Reports: no symptoms Gastrointestinal/Abdominal: Reports: no symptoms Genitourinary: Reports: no symptoms Allergies: Coded Allergies: No Known Allergies (Unverified , 09/20/12) Objective Vital Signs Last 24 Hour Vital Signs Date Time Temp Pulse Resp B/P (MAP) Pulse Ox O2 Delivery O2 Flow Rate FiO2 07/08/19 11:50 97.8 69 19 112/64 (80) 95 07/08/19 08:47 153/91 07/08/19 08:00 97.4 74 19 153/91 (111) 97 07/08/19 07:47 Room Air 07/08/19 04:00 97.8 61 18 118/66 (83) 98 07/08/19 00:00 98.6 61 18 129/60 (83) 96 07/07/19 22:14 99.4 07/07/19 20:00 100.6 83 20 122/73 (89) 96 07/07/19 18:59 Room Air 07/07/19 16:03 98.9 68 20 115/60 (78) 99 Height (Feet): 5 Height (Inches): 11.00 Weight (Pounds): 270 General Appearance: no acute distress HEENT: mucous membranes moist Respiratory/Chest: lungs clear Cardiovascular: normal rate Abdomen: soft, non tender Extremities: no edema Neurologic/Psychiatric: alert, oriented x 3, responsive Laboratory Tests Test 07/08/19 05:30 White Blood Count 8.1 K/UL (4.8-10.8) Red Blood Count 4.50 M/UL (4.70-6.10) L Hemoglobin 13.2 G/DL (14.2-18.0) L Hematocrit 37.0 % (42.0-52.0) L Mean Corpuscular Volume 82 FL (80-99) Mean Corpuscular Hemoglobin 29.4 PG (27.0-31.0) Mean Corpuscular Hemoglobin Concent 35.7 G/DL (32.0-36.0) Red Cell Distribution Width 11.2 % (11.6-14.8) L Platelet Count 207 K/UL (150-450) Mean Platelet Volume 6.4 FL (6.5-10.1) L Neutrophils (%) (Auto) % (45.0-75.0) Lymphocytes (%) (Auto) % (20.0-45.0) Monocytes (%) (Auto) % (1.0-10.0) Eosinophils (%) (Auto) % (0.0-3.0) Basophils (%) (Auto) % (0.0-2.0) Differential Total Cells Counted 100 Neutrophils % (Manual) 60 % (45-75) Lymphocytes % (Manual) 28 % (20-45) Monocytes % (Manual) 9 % (1-10) Eosinophils % (Manual) 3 % (0-3) Basophils % (Manual) 0 % (0-2) Band Neutrophils 0 % (0-8) Platelet Estimate Adequate Platelet Morphology Normal Red Blood Cell Morphology Normal Sodium Level 142 MMOL/L (136-145) Potassium Level 4.1 MMOL/L (3.5-5.1) Chloride Level 106 MMOL/L (98-107) Carbon Dioxide Level 29 MMOL/L (21-32) Anion Gap 7 mmol/L (5-15) Blood Urea Nitrogen 8 mg/dL (7-18) Creatinine 0.8 MG/DL (0.55-1.30) Estimat Glomerular Filtration Rate > 60 mL/min (>60) Glucose Level 94 MG/DL (74-106) Calcium Level 8.8 MG/DL (8.5-10.1) Total Bilirubin 0.6 MG/DL (0.2-1.0) Aspartate Amino Transf (AST/SGOT) 12 U/L (15-37) L Alanine Aminotransferase (ALT/SGPT) 22 U/L (12-78) Alkaline Phosphatase 37 U/L (46-116) L Total Protein 7.2 G/DL (6.4-8.2) Albumin 3.2 G/DL (3.4-5.0) L Globulin 4.0 g/dL Albumin/Globulin Ratio 0.8 (1.0-2.7) L Amylase Level 69 U/L (25-115) Lipase 454 U/L (73-393) H Current Medications Medications (Trade) Dose Ordered Sig/Shell Route PRN Reason Start Time Stop Time Status Last Admin Dose Admin Acetaminophen (Tylenol) 650 mg Q4H PRN ORAL Temp >100 07/03/19 23:15 08/02/19 23:14 07/07/19 21:44 Aspirin (Ecotrin) 81 mg DAILY ORAL 07/07/19 09:00 08/21/19 08:59 07/08/19 08:48 Lisinopril (PriniviL) 20 mg DAILY ORAL 07/07/19 09:00 08/06/19 08:59 07/08/19 08:47 Morphine Sulfate (Morphine Sulfate) 4 mg Q4H PRN IVP Severe Pain (Pain Scale 7-10) 07/03/19 23:15 07/10/19 23:14 07/07/19 14:02 Ondansetron HCl (Zofran) 4 mg Q6H PRN IVP Nausea & Vomiting 07/03/19 23:15 08/02/19 23:14 07/06/19 10:59 Sodium Chloride 1,000 ml @ 75 mls/hr [id number] IV 07/07/19 16:30 08/06/19 16:29 07/08/19 05:46 Brett Drummond MD July 08, 2019 14:35
[2019-07-08] MEDS ORDERED: 1/2 NS 1000ml IV ONE (14:57)
--- NOTE | 2019-07-08 16:37 | Surgery Progress Note ---
Surgery Progress Note Subjective Additional Comments labs improving exam improved no pain no n/v/f/c tolerating diet Objective Last 24 Hour Vital Signs Date Time Temp Pulse Resp B/P (MAP) Pulse Ox O2 Delivery O2 Flow Rate FiO2 07/08/19 11:50 97.8 69 19 112/64 (80) 95 07/08/19 08:47 153/91 07/08/19 08:00 97.4 74 19 153/91 (111) 97 07/08/19 07:47 Room Air 07/08/19 04:00 97.8 61 18 118/66 (83) 98 07/08/19 00:00 98.6 61 18 129/60 (83) 96 07/07/19 22:14 99.4 07/07/19 20:00 100.6 83 20 122/73 (89) 96 07/07/19 18:59 Room Air I&O Intake and Output 07/07/19 07/08/19 19:00 07:00 Intake Total 2700 ml Balance 2700 ml Intake Oral 1500 ml IV Total 1200 ml # Voids 3 2 # Bowel Movements 8 Cardiovascular: RSR Respiratory: clear Abdomen: soft, non-tender, present bowel sounds Extremities: no edema, no tenderness, no cyanosis Laboratory Tests Test 07/08/19 05:30 White Blood Count 8.1 K/UL (4.8-10.8) Red Blood Count 4.50 M/UL (4.70-6.10) L Hemoglobin 13.2 G/DL (14.2-18.0) L Hematocrit 37.0 % (42.0-52.0) L Mean Corpuscular Volume 82 FL (80-99) Mean Corpuscular Hemoglobin 29.4 PG (27.0-31.0) Mean Corpuscular Hemoglobin Concent 35.7 G/DL (32.0-36.0) Red Cell Distribution Width 11.2 % (11.6-14.8) L Platelet Count 207 K/UL (150-450) Mean Platelet Volume 6.4 FL (6.5-10.1) L Neutrophils (%) (Auto) % (45.0-75.0) Lymphocytes (%) (Auto) % (20.0-45.0) Monocytes (%) (Auto) % (1.0-10.0) Eosinophils (%) (Auto) % (0.0-3.0) Basophils (%) (Auto) % (0.0-2.0) Differential Total Cells Counted 100 Neutrophils % (Manual) 60 % (45-75) Lymphocytes % (Manual) 28 % (20-45) Monocytes % (Manual) 9 % (1-10) Eosinophils % (Manual) 3 % (0-3) Basophils % (Manual) 0 % (0-2) Band Neutrophils 0 % (0-8) Platelet Estimate Adequate Platelet Morphology Normal Red Blood Cell Morphology Normal Sodium Level 142 MMOL/L (136-145) Potassium Level 4.1 MMOL/L (3.5-5.1) Chloride Level 106 MMOL/L (98-107) Carbon Dioxide Level 29 MMOL/L (21-32) Anion Gap 7 mmol/L (5-15) Blood Urea Nitrogen 8 mg/dL (7-18) Creatinine 0.8 MG/DL (0.55-1.30) Estimat Glomerular Filtration Rate > 60 mL/min (>60) Glucose Level 94 MG/DL (74-106) Calcium Level 8.8 MG/DL (8.5-10.1) Total Bilirubin 0.6 MG/DL (0.2-1.0) Aspartate Amino Transf (AST/SGOT) 12 U/L (15-37) L Alanine Aminotransferase (ALT/SGPT) 22 U/L (12-78) Alkaline Phosphatase 37 U/L (46-116) L Total Protein 7.2 G/DL (6.4-8.2) Albumin 3.2 G/DL (3.4-5.0) L Globulin 4.0 g/dL Albumin/Globulin Ratio 0.8 (1.0-2.7) L Amylase Level 69 U/L (25-115) Lipase 454 U/L (73-393) H Plan Problems: (1) Pancreatitis Assessment & Plan: 28 year old male with acute pancreatitis not etoh induced. not gallstones as hx of lap kaia similar prior events etiology still under workup possible idiopathic / autoimmune pain still lip >2k on admission npo iv fluids iv abx will follow with clinical exam pain control labs improving d/c planning thank you ABDOMEN: Liver: Mild fatty liver. Gallbladder and bile ducts: Cholecystectomy. Pancreas: Pancreatitis with pancreatic ascites. No pseudocyst. Spleen: Unremarkable. Adrenals: Unremarkable. Kidneys and ureters: Unremarkable. No hydronephrosis. Stomach and bowel: Reactive changes in the stomach and duodenum secondary to the pancreatitis PELVIS: Appendix: No findings to suggest acute appendicitis. Bladder: Unremarkable. Reproductive: Unremarkable. ABDOMEN and PELVIS: Intraperitoneal space: See above. Bones/joints: No acute fracture. Soft tissues: Unremarkable. Vasculature: Unremarkable. No abdominal aortic aneurysm. Lymph nodes: No enlarged lymph nodes. IMPRESSION: Pancreatitis with pancreatic ascites. No pseudocyst. Heber Rodriguez July 08, 2019 16:37
[2019-07-08] MEDS ORDERED: TRAMADOL HCL50 MG ORAL (18:01)
--- NOTE | 2019-07-08 18:17 | NUR ---
NURSE NOTES:D/C INSTRUCTIONS INCLUDING RX,BELONGINGS GIVEN AND ACKNOWLEDGE.PICKED UP BY SISTER.PTROMINA ON D/C.
--- NOTE | 2019-07-08 23:32 | Cardiac Electrophysiology PN ---
Assessment/Plan Assessment/Plan 1. Chest pain. The pain is atypical. Was ruled out for myocardial infarction. Echocardiogram Nl EF. Stress test as out patient. 2. Acute pancreatitis with lipase level of more than 2000 and amylase of 502. The amylase has come down to 92 and lipase down to 411. 3. Hypertension, on lisinopril 20 mg daily. Subjective Subjective No new events. DC in progress Objective Last 24 Hour Vital Signs Date Time Temp Pulse Resp B/P (MAP) Pulse Ox O2 Delivery O2 Flow Rate FiO2 07/08/19 11:50 97.8 69 19 112/64 (80) 95 07/08/19 08:47 153/91 07/08/19 08:00 97.4 74 19 153/91 (111) 97 07/08/19 07:47 Room Air 07/08/19 04:00 97.8 61 18 118/66 (83) 98 07/08/19 00:00 98.6 61 18 129/60 (83) 96 Intake and Output 07/07/19 07/08/19 19:00 07:00 Intake Total 2700 ml Balance 2700 ml Intake Oral 1500 ml IV Total 1200 ml # Voids 3 2 # Bowel Movements 8 Laboratory Tests Test 07/08/19 05:30 White Blood Count 8.1 K/UL (4.8-10.8) Red Blood Count 4.50 M/UL (4.70-6.10) L Hemoglobin 13.2 G/DL (14.2-18.0) L Hematocrit 37.0 % (42.0-52.0) L Mean Corpuscular Volume 82 FL (80-99) Mean Corpuscular Hemoglobin 29.4 PG (27.0-31.0) Mean Corpuscular Hemoglobin Concent 35.7 G/DL (32.0-36.0) Red Cell Distribution Width 11.2 % (11.6-14.8) L Platelet Count 207 K/UL (150-450) Mean Platelet Volume 6.4 FL (6.5-10.1) L Neutrophils (%) (Auto) % (45.0-75.0) Lymphocytes (%) (Auto) % (20.0-45.0) Monocytes (%) (Auto) % (1.0-10.0) Eosinophils (%) (Auto) % (0.0-3.0) Basophils (%) (Auto) % (0.0-2.0) Differential Total Cells Counted 100 Neutrophils % (Manual) 60 % (45-75) Lymphocytes % (Manual) 28 % (20-45) Monocytes % (Manual) 9 % (1-10) Eosinophils % (Manual) 3 % (0-3) Basophils % (Manual) 0 % (0-2) Band Neutrophils 0 % (0-8) Platelet Estimate Adequate Platelet Morphology Normal Red Blood Cell Morphology Normal Sodium Level 142 MMOL/L (136-145) Potassium Level 4.1 MMOL/L (3.5-5.1) Chloride Level 106 MMOL/L (98-107) Carbon Dioxide Level 29 MMOL/L (21-32) Anion Gap 7 mmol/L (5-15) Blood Urea Nitrogen 8 mg/dL (7-18) Creatinine 0.8 MG/DL (0.55-1.30) Estimat Glomerular Filtration Rate > 60 mL/min (>60) Glucose Level 94 MG/DL (74-106) Calcium Level 8.8 MG/DL (8.5-10.1) Total Bilirubin 0.6 MG/DL (0.2-1.0) Aspartate Amino Transf (AST/SGOT) 12 U/L (15-37) L Alanine Aminotransferase (ALT/SGPT) 22 U/L (12-78) Alkaline Phosphatase 37 U/L (46-116) L Total Protein 7.2 G/DL (6.4-8.2) Albumin 3.2 G/DL (3.4-5.0) L Globulin 4.0 g/dL Albumin/Globulin Ratio 0.8 (1.0-2.7) L Amylase Level 69 U/L (25-115) Lipase 454 U/L (73-393) H Objective NECK: No JVD. LUNGS: Clear. CARDIOVASCULAR: Regular S1 and S2 with no gallop or murmur. ABDOMEN: Soft. EXTREMITIES: No pitting edema. Brenton Ayala MD July 08, 2019 23:32
--- NOTE | 2019-07-09 13:38 | NUR ---
*-* INSURANCE *-* UPDATED CLINICALS HAVE BEEN FAXED TO: [facility] Ref#[id number] #[phone] fax#[phone]
--- NOTE | 2019-07-10 14:07 | Discharge Summary ---
Discharge Summary Discharge Summary _ DATE OF ADMISSION: 07/03/2019 DATE OF DISCHARGE: 07/08/2019 DISCHARGED BY: Dr. Jackson REASON FOR ADMISSION: 28 years old male with past medical history of hypertension, pancreatitis, history of gallstones, status post laparoscopic cholecystectomy , presented with increased epigastric pain for 1 day with associated nausea and vomiting. Prior pancreatitis episode was about 4 years ago. Patient denied regular alcohol use , however stated to have one alcoholic beverage few days ago. He denied bloody stool. He denied hematemesis. No fever or chills. No sick contacts. Upon evaluation vital signs reveal elevated blood pressure 167/104. Laboratory work-up revealed mild leukocytosis WBC 11.7, stable hemoglobin, hematocrit and platelet count. Lipase above 2000. Stable AST and ALT. Stable electrolytes and renal parameters. Urinalysis revealed no evidence of urinary tract infection. CT scan of the abdomen and pelvis revealed pancreatitis with pancreatic ascites. No pseudocyst. Patient subsequently admitted to medical surgical floor for further management. CONSULTANTS: substitute school nurse Dr. Cruz ID specialist Dr. Brett Drummond GI specialist Dr. Grove surgery Dr. Rodriguez pain specialist Dr. Gurrola [facility] COURSE: Patient admitted to medical surgical floor. Patient was kept n.p.o. and started on the IV fluids. Pain management was addressed as per pain specialist recommendation Antiemetic provided as needed. Blood pressure was managed as per substitute school nurse recommendation with MADELINE inhibiotir, and stabilzied. Per substitute school nurse chest pain was atypical. Serial troponin negative, EKG revealed no acute ischemic changes. Patient was ruled out for acute myocardial infarction. Echocardiogram revealed preserved ejection fraction. Entry Level Marketing Representative recommended stress test as outpatient. Patient slowly started on liquid diet and was advanced as tolerated. Initial amylase 502 , trended down to normal prior to discharge ; initial lipase remains above 2000 and trended down to 454 prior to discharge . Mild leukocytosis resolved. No need for antibiotics as per ID specialist. Patient clinically stabilized and was ready for discharge home. FINAL DIAGNOSES: Acute pancreatitis Atypical chest pain Fatty liver Hypertension DISCHARGE MEDICATIONS: See Medication Reconciliation list. DISCHARGE INSTRUCTIONS: Patient was discharged home. Follow-up with a primary care provider in 1 week. I have been assigned to dictate discharge summary for this account. I was not involved in the patient's management. Rosana Lala NP July 10, 2019 14:07
--- NOTE | 2019-07-10 14:10 | NUR ---
*-* INSURANCE *-* UPDATED CLINICALS HAVE BEEN FAXED TO: [facility] Ref#[id number] #[phone] fax#[phone]
--- NOTE | 2019-07-10 14:10 | NUR ---
*-* INSURANCE *-* DISCHARGE SUMMARY HAS BEEN FAXED TO: [facility] Ref#[id number] #[phone] fax#[phone]
== END 2019-07-08 18:37 | disposition home or self-care (01) | DRG 439 ==
LOC: EMR 19:20 → 3E 20:55 → EDBEDREQ 22:24
DX: K85.90 Acute pancreatitis without necrosis or infection, unspecified (principal); R18.8 Other ascites; I10 Essential (primary) hypertension; Z90.49 Acquired absence of other specified parts of digestive tract; R07.89 Other chest pain; K76.0 Fatty (change of) liver, not elsewhere classified; Z79.82 Long term (current) use of aspirin; E66.01 Morbid (severe) obesity due to excess calories; R00.2 Palpitations; Z68.38 Body mass index [BMI] 38.0-38.9, adult
CPT/HCPCS: 36415; 74177; 80053; 80061; 81003; 82150; 82248; 83690; 84484; 85007; 85025; 85610; 85730; 86850; 86900; 86901; 93005; 93306; 96361; 96374; 96375; 96376; 99285; J2405; J7030